=== PATIENT | female | born 1985 | race Caucasian/White ===

== ENCOUNTER 2017-12-04 10:49 | Day surgery (SDC) | payer OTHER ==
[~2017-12-04 10:49] MED LIST: Bupivacaine 0.25%/EPINEPHrine 1:200,000 10 ML SDV INJECT ONE; Lactated Ringers 1,000 ML IV SCH; ceFAZolin 2 GM in Premix Bag 1 BAG IV ONE
--- NOTE | 2017-12-04 11:35 | PCM.PREANE ---
Preanesthetic Assessment - Anesthesia/Transfusion/Family Hx Anesthesia History: Prior Anesthesia Without Reaction Family History of Anesthesia Reaction: No Transfusion History: No Prior Transfusion(s) Intubation History: Unknown - Review of Systems General: No Symptoms Pulmonary: No Symptoms Cardiovascular: No Symptoms Gastrointestinal: No Symptoms Neurological: No Symptoms Other: Reports: None - Physical Assessment Height: 1.75 m Weight: 103.873 kg ASA Class: 2 Mental Status: Alert & Oriented x3 Airway Class: Mallampati = 2 Dentition: Reports: Normal Dentition Thyro-Mental Finger Breadths: 3 Mouth Opening Finger Breadths: 3 ROM/Head Extension: Full Lungs: Clear to Auscultation, Normal Respiratory Effort Cardiovascular: Regular Rate, Regular Rhythm - Allergies Allergies/Adverse Reactions: Allergies Allergy/AdvReac Type Severity Reaction Status Date / Time aluminum hydroxide Allergy Hives Verified 11/29/17 08:46 ciprofloxacin [From Cipro] Allergy Swelling Verified 11/29/17 08:46 ciprofloxacin HCl Allergy Swelling Verified 11/29/17 08:46 [From Cipro] latex Allergy Hives Verified 11/29/17 08:46 - Blood Blood Available: No - Anesthesia Plan Pre-Op Medication Ordered: None - Acknowledgements Anesthesia Type Planned: General Anesthesia Pt an Appropriate Candidate for the Planned Anesthesia: Yes Alternatives and Risks of Anesthesia Discussed w Pt/Guardian: Yes Pt/Guardian Understands and Agrees with Anesthesia Plan: Yes PreAnesthesia Questionnaire HEENT History: Reports: Allergic Rhinitis Cardiovascular History: Reports: Hypertension Respiratory History: Reports: None Gastrointestinal History: Reports: GERD Genitourinary History: Reports: UTI, Recurrent, Other (See Below) (overactive bladder) WARPER FIXER History: Reports: Endometriosis, Musculoskeletal History: Reports: Back Pain, Chronic Other Musculoskeletal History: disc problem, minor pain only since surgery Neurological History: Reports: Migraines, Neuropathy, Peripheral Psychiatric History: Reports: Anxiety, Depression Endocrine/Metabolic History: Reports: Obesity/BMI 30+ Hematologic History: Reports: None Immunologic History: Reports: None Oncologic (Cancer) History: Reports: Malignant Melanoma (on left 5th finger) Dermatologic History: Reports: None - Infectious Disease History Infectious Disease History: Reports: Chicken Pox - Past Surgical History Head Surgeries/Procedures: Reports: None GI Surgical History: Reports: Appendectomy, Cholecystectomy, Colonoscopy, EGD Neurological Surgical History: Reports: Spinal Fusion Other Neurological Surgeries/Procedures: L4-L5 fusion Musculoskeletal Surgical History: Reports: Other (See Below) Other Musculoskeletal Surgeries/Procedures:: L4-L5 fusion, nerve stimulator placement - SUBSTANCE USE Smoking Status *Q: Current Every Day Smoker Tobacco Use Within Last Twelve Months: Cigarettes Second Hand Smoke Exposure: Yes Days Per Week of Alcohol Use: 0 Number of Drinks Per Day: 0 Total Drinks Per Week: 0 Recreational Drug Use History: No - HOME MEDS Home Medications: Home Meds Escitalopram [Lexapro] 20 mg PO DAILY 09/16/14 [History] Ethinyl Estradiol/Etonogestrel [Nuvaring Vaginal Ring] 1 applic VAG ASDIRECTED 09/16/14 [History] Cetirizine [ZyrTEC] 10 mg PO DAILY 01/14/15 [History] Loratadine [Claritin] 10 mg PO DAILY 01/14/15 [History] Montelukast [Singulair] 10 mg PO BEDTIME 01/14/15 [History] Amitriptyline [Elavil] 10 mg PO BEDTIME 11/29/17 [History] Doxycycline [Vibramycin] 1 tab PO BID 11/29/17 [History] Enalapril Maleate 10 mg PO DAILY 11/29/17 [History] Lisinopril 20 mg PO DAILY 11/29/17 [History] Sulfamethoxazole/Trimethoprim [Bactrim Ds Tablet] 2 tab PO BID 11/29/17 [History ] - CURRENT (IN HOUSE) MEDS Current Meds: Current Medications Hydrocodone Bitart/Acetaminophen ([place] 325-5 Mg) 1 tab PO Q4H PRN PRN Reason: Pain Lactated Ringer's (Ringers, Lactated) 1,000 mls @ 125 mls/hr IV ASDIRECTED JOSE Discontinued Medications Bupivacaine HCl/Epinephrine Bitart (Marcaine 0.25%/Epinephrine 1:200,000) 10 ml INJECT ONETIME ONE Stop: 12/04/17 08:01 Cefazolin Sodium/Dextrose 2 gm (/ Premix) 50 mls @ 100 mls/hr IV ONETIME ONE Stop: 12/04/17 08:29
[2017-12-04] MEDS ORDERED: ceFAZolin/Dextrose,Iso-Osmotic 2 GM/50 ML Duplex Bag IV ONE (12:16)
[2017-12-04] MEDS ORDERED: fentaNYL 250 MCG/5 ML SDV ONE (12:20)
[2017-12-04] MEDS ORDERED: Lidocaine 2% 5 ML SDV ONE (12:20)
[2017-12-04] MEDS ORDERED: Midazolam 1 MG/ML 2 ML SDV ONE (12:20)
[2017-12-04] MEDS ORDERED: Propofol 200 MG/20 ML SDV ONE ×2 (12:20→14:44)
[2017-12-04] MEDS ORDERED: Ketorolac 30 MG/ML SDV ONE (12:21)
[2017-12-04] MEDS ORDERED: Ondansetron 4 MG/2 ML SDV ONE (12:21)
[2017-12-04] MEDS ORDERED: Bupivacaine 25%/EPINEPHrine/PF 30 ML ONE (12:46)
[2017-12-04] MEDS ORDERED: Methylene Blue 50 MG/10 ML Ampule ONE (12:54)
[2017-12-04] MEDS ORDERED: fentaNYL 100 MCG/2 ML SDV ONE (13:32)
--- NOTE | 2017-12-04 14:32 | NM ---
EXAMINATION: Left upper extremity lymphoscintigraphy HISTORY: Melanoma COMPARISON: None TECHNIQUE: Chest proximal to the site of previous melanoma within the hand 4 intradermal injections containing 0.5 mCi of filtered sulfur colloid were injected. Subsequent planar imaging obtained of the upper extremity. FINDINGS/IMPRESSION: Approximately 15 minutes post injection activity was noted within the region of the left elbow likely within an epitrochlear lymph node node. Subsequently at 15 to 30 minutes activity is noted within the left axillary region. MTDD
--- NOTE | 2017-12-04 16:40 | PCM.POSTAN ---
POST ANESTHESIA ASSESSMENT - MENTAL STATUS Mental Status: Alert, Oriented Free Text/Narrative:: Pt still sleepy, but sat's 98% on RA - RESPIRATORY Respiratory Status: Respiratory Rate WNL, Airway Patent, O2 Saturation Stable - CARDIOVASCULAR CV Status: Pulse Rate WNL, Blood Pressure Stable - GASTROINTESTINAL GI Status: No Symptoms - PAIN Pain Score: 0 - POST OP HYDRATION Hydration Status: Adequate & Stable
[2017-12-04] MEDS: Acetaminophen/HYDROcodone 325-5 MG Tab PO PRN ×2 (16:57→21:02)
--- NOTE | 2017-12-04 17:15 | PCM.SN ---
- Free Text/Narrative Note: Anesthesia Note: Pt going to stay overnight for pain control. Currently has taken PO [place] and is receiving IV Fentanyl prior to transfer to the floor. VSS.
[2017-12-04] MEDS: fentaNYL 100 MCG/2 ML SDV IVPUSH PRN ×2 (17:19→17:47)
[2017-12-04] MEDS ORDERED: Ondansetron 4 MG Tab.DIS PO PRN (17:21)
--- NOTE | 2017-12-04 17:25 | PCM.OPNOTE ---
- General Post-Op/Procedure Note Date of Surgery/Procedure: 12/04/17 Operative Procedure(s): amputation of left small finger for melanoma with sentinel lymph node biopsy at elbow and axillae, excision of lip lesion/ melanosis. 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
[2017-12-04] MEDS ORDERED: Nicotine 14 MG/24 Hr Patch TRDERM PRN (17:36)
[2017-12-04] MEDS: Morphine 4 MG/ML Syringe IVPUSH PRN ×2 (19:09→21:38)
[2017-12-04] MEDS: Ibuprofen 600 MG Tab PO PRN (19:13)
[2017-12-04] MEDS: Gabapentin 100 MG Cap PO SCH (21:02)
[2017-12-05] MEDS: Acetaminophen/HYDROcodone 325-5 MG Tab PO PRN ×3 (01:51→11:52)
--- NOTE | 2017-12-05 06:00 | PCM48HPAN ---
Post Anesthesia Note - EVALUATION WITHIN 48HRS OF ANESTHETIC Vital Signs in Normal Range: Yes Patient Participated in Evaluation: Yes Respiratory Function Stable: Yes Airway Patent: Yes Cardiovascular Function Stable: Yes Hydration Status Stable: Yes Pain Control Satisfactory: Yes Nausea and Vomiting Control Satisfactory: Yes Mental Status Recovered: Yes Pulse Rate: 64 SaO2: 95 Resp Rate: 14 Blood Pressure: 130/79 - COMMENTS/OBSERVATIONS Free Text/Narrative:: Pt resting, but has had good pain control since about midnight according to the nurse. VSS. No apparent anesthesia complications.
[2017-12-05] MEDS: Gabapentin 100 MG Cap PO SCH (08:03)
[2017-12-05] MEDS: Ibuprofen 600 MG Tab PO PRN (08:04)
--- NOTE | 2017-12-05 13:26 | PCM.PN ---
- General Info Date of Service: 12/05/17 Admission Dx/Problem (Free Text): amputation of left small finger for melanoma and sentinel node biopsies epitrochlear and axillary. Grossly pigmented. Subjective Update: continues to struggle with pain. Discussed changing PO to oxycodone and will try this now. Otherwise no bleeding and overall eating and ambulating. Functional Status: Reports: Tolerating Diet, Ambulating, Urinating. Denies: Pain Controlled - Review of Systems General: Reports: No Symptoms HEENT: Reports: No Symptoms Skin: Reports: Bruising Neurological: Reports: Numbness (small finger and ring finger distribution as expected. Swelling for the ring finger and small finger burning. ) Psychiatric: Reports: Anxiety - Patient Data Vitals - Most Recent: Last Vital Signs Temp 98.2 F 12/05/17 12:00 Pulse 60 12/05/17 12:00 Resp 12 12/05/17 12:00 BP 140/82 12/05/17 12:00 Pulse Ox 94 L 12/05/17 12:00 Weight - Most Recent: 229 lb I&O - Last 24 Hours: Intake & Output 12/04/17 12/05/17 12/05/17 23:59 07:59 15:59 Intake Total 1920 600 920 Output Total 200 Balance 1920 600 720 Med Orders - Current: Current Medications Fentanyl (Sublimaze) 50 mcg IVPUSH Q5M PRN PRN Reason: Pain (severe 7-10) Stop: 12/05/17 14:51 Last Admin: 12/04/17 17:47 Dose: 50 mcg Gabapentin (Neurontin) 100 mg PO BID JOSE Last Admin: 12/05/17 08:03 Dose: 100 mg Ibuprofen (Motrin) 600 mg PO Q6H PRN PRN Reason: Pain Last Admin: 12/05/17 08:04 Dose: 600 mg Morphine Sulfate (Morphine) 2 mg IVPUSH Q2H PRN PRN Reason: Pain Last Admin: 12/04/17 21:38 Dose: 2 mg Nicotine (Habitrol) 14 mg TRDERM ONETIME PRN PRN Reason: Nicotine Withdrawl Last Admin: 12/04/17 18:16 Dose: 14 mg Ondansetron HCl (Zofran Odt) 4 mg PO Q4H PRN PRN Reason: Nausea/Vomiting Oxycodone HCl (Oxycodone) 5 mg PO Q3H PRN PRN Reason: Pain Discontinued Medications Hydrocodone Bitart/Acetaminophen ([place] 325-5 Mg) 1 tab PO Q4H PRN PRN Reason: Pain Last Admin: 12/05/17 01:51 Dose: 2 tab Hydrocodone Bitart/Acetaminophen ([place] 325-5 Mg) 1 - 2 tab PO Q4H PRN PRN Reason: Pain Last Admin: 12/05/17 11:52 Dose: 2 tab Bupivacaine HCl/Epinephrine Bitart (Marcaine 0.25%/Epinephrine 1:200,000) 10 ml INJECT ONETIME ONE Stop: 12/04/17 08:01 Last Admin: 12/04/17 19:21 Dose: Not Given Cefazolin Sodium/Dextrose (Ancef) Confirm Administered Dose 2 gm IV .STK-MED ONE Stop: 12/04/17 12:17 Fentanyl (Sublimaze) Confirm Administered Dose 250 mcg .ROUTE .STK-MED ONE Stop: 12/04/17 12:21 Fentanyl (Sublimaze) Confirm Administered Dose 100 mcg .ROUTE .STK-MED ONE Stop: 12/04/17 13:33 Cefazolin Sodium/Dextrose 2 gm (/ Premix) 50 mls @ 100 mls/hr IV ONETIME ONE Stop: 12/04/17 08:29 Last Admin: 12/04/17 19:22 Dose: Not Given Lactated Ringer's (Ringers, Lactated) 1,000 mls @ 125 mls/hr IV ASDIRECTED [facility] Last Admin: 12/04/17 11:15 Dose: 125 mls/hr Bupivacaine HCl/Epinephrine Bitart (Sensorc Mpf 0.25%-Epi [id number]) Confirm Administered Dose 30 mls @ as directed .ROUTE .STK-MED ONE Stop: 12/04/17 12:47 Ketorolac Tromethamine (Toradol) Confirm Administered Dose 30 mg .ROUTE .STK- MED ONE Stop: 12/04/17 12:22 Lidocaine (Xylocaine-Mpf 2%) Confirm Administered Dose 10 ml .ROUTE .STK-MED ONE Stop: 12/04/17 12:21 Methylene Blue (Provayblue) Confirm Administered Dose 50 mg .ROUTE .STK-MED ONE Stop: 12/04/17 12:55 Midazolam HCl (Versed 1 Mg/Ml) Confirm Administered Dose 2 mg .ROUTE .STK-MED ONE Stop: 12/04/17 12:21 Ondansetron HCl (Zofran) Confirm Administered Dose 4 mg .ROUTE .STK-MED ONE Stop: 12/04/17 12:22 Propofol (Diprivan 20 Ml) Confirm Administered Dose 400 mg .ROUTE .STK-MED ONE Stop: 12/04/17 12:21 Propofol (Diprivan 20 Ml) Confirm Administered Dose 200 mg .ROUTE .STK-MED ONE Stop: 12/04/17 14:45 - Exam General: Alert, Oriented, Cooperative HEENT: Pupils Reactive Lungs: Normal Respiratory Effort Extremities: Normal Capillary Refill Skin: Warm, Dry Wound/Incisions: Healing Well, Dressing Dry and Intact, No Drainage. No: Erythema Psy/Mental Status: Alert, Normal Affect, Normal Mood - Problem List & Annotations (1) Melanoma SNOMED Code(s): 472837062 Code(s): C43.9 - MALIGNANT MELANOMA OF SKIN, UNSPECIFIED Status: Acute Current Visit: Yes Qualifiers: Melanoma location: upper extremity including shoulder Laterality: left Qualified Code(s): C43.62 - Malignant melanoma of left upper limb, including shoulder - Problem List Review Problem List Initiated/Reviewed/Updated: Yes - My Orders Last 24 Hours: My Active Orders 12/04/17 17:11 Admission Status [Patient Status] [ADT] Routine 12/04/17 17:13 Morphine 2 mg IVPUSH Q2H PRN 12/04/17 17:20 Ibuprofen [Motrin] 600 mg PO Q6H PRN 12/04/17 17:21 Ondansetron [Zofran ODT] 4 mg PO Q4H PRN 12/04/17 17:22 Vital Signs [RC] Q4H 12/04/17 17:23 Elevate Extremity [RC] CONTINUOUS 12/04/17 21:00 Gabapentin [Neurontin] 100 mg PO BID 12/04/17 Dinner General [Regular Diet] [DIET] 12/05/17 13:21 oxyCODONE 5 mg PO Q3H PRN - Assessment Assessment:: POD 1 s/p left small finger ray amputation and sentinel node x 2. still with some IV pain medication usage. - Plan Plan:: Continue supportive cares and attempt PO pain control Hopefully home later today if we can improve pain Continue gentle use of the left hand and OK to shower.
[2017-12-05] MEDS: oxyCODONE 5 MG Tab PO PRN ×2 (13:28→16:41)
[2017-12-05 16:48] VITALS: BP 148/82
--- NOTE | 2017-12-05 18:05 | PCM.SN ---
- Free Text/Narrative Note: Doing better with the oxycodone and discussed pain management. OK to discharge later today. Scripts written. Instruction provided especially on careful taking of medication.
--- NOTE | 2017-12-11 00:33 | OR ---
SURGEON: KEON DENNY MD DATE OF PROCEDURE: 12/04/2017 PREOPERATIVE DIAGNOSES: 1. 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 POSTOPERATIVE DIAGNOSES: 1. 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 PROCEDURES PERFORMED: 1. Ray amputation for left small finger melanoma with at least 2 cm margins from the melanoma itself 2. [place] lymph node biopsy x2 at the elbow and axilla. 3. Excision of lip lesion, melanosis, total length of excision is 1 cm with simple closure. ANESTHESIA: Local with general. INDICATIONS: Ms. Paredes is a 32-year-old female seen today in evaluation for melanoma of the left small finger. Unfortunately, it has been there for several years, and the depth is very difficult to tell because it does extend all the way down to the tendon sheath. We discussed risks and benefits of a ray amputation for her. This is what I would recommend given the 2 cm margin would be into the palm and other digits given its location on the proximal phalanx. Risks and benefits of this were discussed thoroughly with her, and she was in agreement. Risks were including but not limited to, bleeding, infection, damage to underlying or overlying structures, possible need for future interventions and possible scarring. All questions answered. We also discussed the prognosis associated with the sentinel lymph node biopsy, and we will proceed with this for her as well. She has no palpable lymphadenopathy. In addition, the patient does have also an area of melanosis of the left lower lip. We discussed that given a diagnosis of melanoma in a very young individual, I would recommend excision of this as it is more focal than the other areas and somewhat darker. It has progressed over the last several weeks. Given this, we discussed removal, and all questions were answered. PROCEDURE IN DETAIL: After informed consent was obtained and placed on the chart, the patient was brought to the operating theater and laid in supine position. After adequate general anesthesia was obtained, the area was prepped and draped, and a time-out was completed to confirm side and site. Attention was first paid to the left lower lip lesion, and 0.25% Marcaine with epinephrine was injected into the area. The lesion was excised in an elliptical fashion and sent with a marking stitch at 12 o'clock to pathology. Once this was sent, the wound was closed using 5-0 chromic stitches in interrupted fashion. She tolerated this well for a total length of 1 cm. Once adequately closed, attention was then paid to the left upper extremity. The area was prepped and draped in a normal fashion, and attention was paid to first the sentinel lymph node biopsies. The nodes were first located, and measurements from both were approximately 10% of the injection site. Given this and the location on the hand, the decision to take both areas as sentinel nodes was made. Attention was first paid to the axillary node, and dissection was carried through the skin and subcutaneous tissues using #15 blade and Bovie electrocautery until dissection through the superficial fascia and location of the axillary lymph node deep in the pocket. The area was spread, and a slightly enlarged axillary lymph node was located and determined to be, using the [place] counter, the sentinel node from this area. Once removed en bloc, the area was meticulously hemostased and irrigated and closed in a layered fashion using 3-0 Stratafix suture for a meticulous closure. The skin was closed with a 4-0 Stratafix running. Once adequately closed, the wound was dressed with a Steri-Strip. Attention was then paid to the left epitrochlear node in the distal upper arm. This was again located at approximately 10% of the original lesion measurements. This was excised and easily found in the subcutaneous plane. It does have a darker pigment to it. The epitrochlear node was labeled as sentinel lymph node #1, and the armpit node was labeled as sentinel lymph node #2 and sent for pathology. Once copiously irrigated and meticulous hemostasis was obtained, again, the skin was closed using a 4-0 subcuticular Monocryl Stratafix. Once these nodes were located and sent for pathology, attention was then paid to ray amputation. The finger was marked appropriately with [address] the way around the mass, and then a pattern was completed to allow meticulous closure without significant tension borrowing tissue from the dorsal aspect of the metacarpophalangeal joint for additional skin. Once adequately marked, 0.25% Marcaine with epinephrine was blocked into the area at the base of the palm in order to allow a field block. Once this was completed, attention was then paid to ray amputation. First, dissection was carried through the skin and subcutaneous tissues, and the neurovascular bundles were located. Once located, traction neurectomies were performed, and the residual ends were attempted to be buried in the residual musculature of the palm. Once this was completed, meticulous hemostasis was obtained, and the metacarpal itself was transected in an oblique fashion at the base leaving the most proximal base intact with a taper ulnarly to prevent prominence here. Once adequately removed en bloc and all of the muscular attachments had been divided using Bovie electrocautery after isolation of the neurovascular bundles, the area was copiously irrigated. The tourniquet was deflated. Meticulous hemostasis was obtained. Appropriate contour was appreciated with significant muscular attachments at the base of the fifth metacarpal allowing coverage of the bony stump here. Once this was completed, the skin was reapproximated after copious irrigation and meticulous hemostasis and closed using a 5-0 Prolene in an interrupted fashion. The melanoma and small finger en bloc were sent for pathological evaluation. The wound was dressed with Xeroform, fluffs, and a Kerlix gauze dressing, and the upper arm incisions were dressed with ABDs and Rehan wraps as well as tape. The lip lesion was dressed with bacitracin. The patient tolerated this well. All counts and needles were correct at the end of the case. FOLLOWUP INSTRUCTIONS: The patient will be maintained in the hospital for pain control postoperatively due to some postoperative nausea and pain issues. She was transferred to PACU in stable condition and will remain in the hospital overnight. LAURA / PRAVEENA /[id number] RONALD
== END 2017-12-05 19:23 | disposition home or self-care (01) ==
LOC: MW.SDS 10:49 → MW.ICU 17:11 → MW.SDS 12-05 19:23
PROVIDERS: ATTEND Plastic Surgery
DX: C43.62 Malignant melanoma of left upper limb, including shoulder (principal); L81.4 Other melanin hyperpigmentation; F32.9 Major depressive disorder, single episode, unspecified; Z88.1 Allergy status to other antibiotic agents; Z91.040 Latex allergy status; Z91.048 Other nonmedicinal substance allergy status; Z79.899 Other long term (current) drug therapy
CPT/HCPCS: 11441; 26910; 38500; 38525; 78195; 81025; 88305; 88307; A9270; A9541; J0690; J1885; J2250; J2270; J2405; J3010; J7120; 01830; J2704

== ENCOUNTER 2020-08-19 08:20 | Inpatient (IN) | payer SELFPAY ==
[2020-08-19] MEDS ORDERED: LORazepam 2 MG/ML SDV IVPUSH ONE (08:58)
[2020-08-19] MEDS ORDERED: Lactated Ringers 1,000 ML IV ONE (08:58)
[2020-08-19] MEDS ORDERED: Aspirin 81 MG Tab.Chew PO ONE (08:58)
--- NOTE | 2020-08-19 09:14 | EDM.PDOC ---
ED HPI GENERAL MEDICAL PROBLEM - General Chief Complaint: General Stated Complaint: SHAKING POSSIBLE HIGH HEART RATE Time Seen by Provider: 08/19/20 08:30 - History of Present Illness INITIAL COMMENTS - FREE TEXT/NARRATIVE: CHIEF COMPLAINT(S): High heart rate HISTORY OF PRESENT ILLNESS: This is a 34-year-old with a past medical history of melanoma who is currently on treatment who comes to the emergency department with a chief complaint of high heart rate. The patient states that for the last 3 days she is experiencing a racing heart rate. She states that it has been constant. She states that she has been experiencing some mild chest pain located on the left side which she describes as sharp rated 4-6 out of 10. She states that there is some mild radiation to her left shoulder. She denies any associated symptoms such as swelling, orthopnea, exertional dyspnea, or exertional chest pain. She states that there are no relieving symptoms. She states that she has had some mild shortness of breath and does have a smoker's cough. She states that she does smoke tobacco. She states that she is also had some nausea and vomiting which was nonbloody and nonbilious that has been going on after her first treatment on August 02, 2019. She denies any melena or hematochezia. She denies any fever, chills, syncope, abdominal pain. She denies any dysuria or hematuria. She denies any prior history of DVT or PE and denies any family history of clotting disorders. She denies any illicit substance use. REVIEW OF SYSTEMS: Constitutional: Denies fever, chills. Eyes: Denies eye pain Ears, Nose, Mouth, & Throat: Denies earache Cardiovascular: Positive for chest pain Respiratory: Positive for shortness of breath Gastrointestinal: Positive for nausea and vomiting. Denies diarrhea, hematochezia, melena, hematemesis, bilious emesis Genitourinary: Denies hematuria dysuria Skin: Positive for rash on face Neurological: Denies blurred vision, numbness, tingling, weakness Psychiatric: Positive for fibromyalgia PAST MEDICAL HISTORY: As per history of present illness and as reviewed below otherwise noncontributory. SURGICAL HISTORY: As per history of present illness and as reviewed below otherwise noncontributory. SOCIAL HISTORY: As per history of present illness and as reviewed below otherwise noncontributory. FAMILY HISTORY: As per history of present illness and as reviewed below otherwise noncontributory. EXAMINATION OF ORGAN SYSTEMS/BODY AREAS: Constitutional: Blood pressure was 140/82, heart rate 140, respiratory rate 39 with an oxygen saturation 9 9% on room air. Temperature is 36.6 orally. General: Anxiously appearing young woman who is in no acute distress Psychiatric: Appears anxious Eyes: No scleral icterus or conjunctival erythema pupils are equal round reactive to light. Extraocular movements intact. ENMT: Moist mucous membranes. No pharyngeal erythema neck is supple no thyromegaly. Cardiovascular: Tachycardic but regular no gallops, murmurs, or rubs. Bilateral upper extremity pulses symmetric and intact. No peripheral edema. No JVD. Respiratory: Lungs clear to auscultation bilaterally. No wheezes, rales, or rhonchi. Patient is tachypneic. Gastrointestinal: Soft, non-tender, non-distended. Normoactive bowel sounds Genitourinary: No suprapubic tenderness Musculoskeletal: Normal range of motion. Skin: There is some mild blotchy, scaly, red rash throughout her face neurological: Alert, GCS 15 MEDICAL DECISION MAKING AND COURSE IN THE ED WITH INTERPRETATION/REVIEW OF DIAGNOSTIC STUDIES: This is a 34-year-old woman in with a past medical history of melanoma and fibromyalgia currently undergoing chemotherapy who comes to the emergency department with tachycardia who is afebrile, normotensive, and tachypneic. I did review the patient's medication list and the patient is on an extensive amount of antidepressants including E citalopram, duloxetine, amitriptyline, Adderall, and naltrexone. This could be a side effect from these medications however given her history of melanoma on chemotherapy PE needs to be rule out. Will obtain an angiogram of the chest to evaluate. Given the patient is afebrile infection is less likely. We will provide the patient with a 500 cc bolus as her #1 diagnosis at this time is pulmonary embolus. Given the chemotherapy will obtain lab analysis including CBC with differential, CMP. This could also be due to hyperthyroidism. Will obtain a TSH and T4. RN had difficulty obtaining access to reports therefore IV access was placed. It is thought that the port may be misplaced therefore we will obtain a chest x-ray to evaluate. For the tachycardia we will also provide the patient with 1 mg of IV Ativan. Given the chest pain will obtain a 324 mg aspirin. EKG was obtained which did not reveal any acute signs of ischemia. Twelve-lead EKG interpreted by myself. Sinus tachycardia at a rate of 133 beats per minute. The axis. NC interval is 127 ms. QRS duration is [address] segments are normal without elevations or depressions. No Q waves present. Hypertrophy not noted. No prior EKGs in the system. Interpretation: Sinus tachycardia Laboratory: CBC is unremarkable. Coags are within normal limits. Lactic acid is 3.2. CMP reveals mild elevation in BUN at 21, hyperglycemia at 113 and mild elevation in ALT at 69. TSH is severely low at 0.01 and free T4 and free T3 are elevated at 4.09 and 5.92. hCG is negative. Covid and influenza and RSV are negative. The radiological images were viewed by myself along with reading the report from the radiologist. Chest x-ray does not reveal any acute cardiopulmonary process. Port catheter is in satisfactory position. CT angiogram of the chest does not reveal any acute pulmonary embolism or other acute abnormality. There is a stable 4 mm right lower lobe nodule of doubtful significance. Lungs are clear otherwise. After TSH had returned I do believe this is secondary to hyperthyroidism. The patient's heart rate had improved to 110. We do not have the ability to provide the patient with propranolol IV therefore I ordered the patient atenolol 25 mg p.o. We discussed with her at this time that given the tachycardia and degree of hyperthyroidism would like to admit her the hospital. She was amenable to this plan. I do not believe this is thyroid storm therefore I will not provide her with any other medication. I contacted Dr. Houser and they accepted the patient for admission. At the time of admission the patient's heart rate improved. Repeat lactic acid was pending at the patient was still receiving IV bolus. DISPOSITION: The patient admitted to telemetry in stable condition CONDITION: Fair PROCEDURES: None FINAL IMPRESSION(S)/DIAGNOSES: 1. Acute tachycardia likely secondary to hyperthyroidism 2. Acute lactic acidosis Rafiq Spencer M.D. Left Chest Pain Score (Numeric/FACES): 4 - Related Data Allergies Allergy/AdvReac Type Severity Reaction Status Date / Time aluminum hydroxide Allergy Hives Verified 08/19/20 14:39 ciprofloxacin [From Cipro] Allergy Swelling Verified 08/19/20 14:39 ciprofloxacin HCl Allergy Swelling Verified 08/19/20 14:39 [From Cipro] latex Allergy Hives Verified 08/19/20 14:40 sulfamethoxazole Allergy Hives Verified 08/19/20 14:41 [From Bactrim] trimethoprim [From Bactrim] Allergy Hives Verified 08/19/20 14:41 Home Meds: Home Meds Amitriptyline [Elavil] 50 mg PO DAILY 08/19/20 [History] Amphetamine/Dextroamphetamine [Adderall] 20 mg PO TID 08/19/20 [History] DULoxetine HCl [Duloxetine HCl] 60 mg PO DAILY 08/19/20 [History] Diclofenac Sodium [Voltaren] 75 mg PO BID 08/19/20 [History] Escitalopram [Lexapro] 20 mg PO DAILY 08/19/20 [History] Naltrexone 4.5 mg PO DAILY 08/19/20 [History] Ondansetron [Zofran] 4 mg PO ASDIRECTED PRN 08/19/20 [History] lisinopriL [Lisinopril] 20 mg PO DAILY 08/19/20 [History] Past Medical History HEENT History: Reports: None Other HEENT History: wears eyeglasses Cardiovascular History: Reports: None Respiratory History: Reports: None Other Respiratory History: seasonal allergy asthma Gastrointestinal History: Reports: None Other Gastrointestinal History: gluten allergy Genitourinary History: Reports: UTI, Recurrent, Other (See Below) PUBLIC HEALTH DENTIST History: Reports: Musculoskeletal History: Reports: None Other Musculoskeletal History: disc problem, minor pain only since surgery Neurological History: Reports: Migraines Psychiatric History: Reports: None, Depression Endocrine/Metabolic History: Reports: Obesity/BMI 30+ Hematologic History: Reports: None Immunologic History: Reports: None Oncologic (Cancer) History: Reports: None Dermatologic History: Reports: None - Infectious Disease History Infectious Disease History: Reports: Chicken Pox - Past Surgical History GI Surgical History: Reports: Appendectomy, Cholecystectomy Other Musculoskeletal Surgeries/Procedures:: L4-L5 fusion Social & Family History - Family History Cardiac: Reports: None Respiratory: Reports: None GI: Reports: None Endocrine/Metabolic: Reports: None Hematologic: Reports: None Immunologic: Reports: None Dermatologic: Reports: None - Caffeine Use Caffeine Use: Reports: Soda ED ROS GENERAL - Review of Systems Review Of Systems: See Below ED EXAM, GENERAL - Physical Exam Exam: See Below Course - Vital Signs Last Recorded V/S: Last Vital Signs Temp 36.5 C 08/19/20 14:10 Pulse 88 08/19/20 18:17 Resp 16 08/19/20 14:10 BP 116/53 L 08/19/20 18:17 Pulse Ox 97 08/19/20 14:10 - Orders/Labs/Meds Orders: Active Orders 24 hr Category Date Time Status Nicotine [Habitrol] Med 08/19/20 11:30 Active 21 mg TRDERM DAILY Medication Orders Amitriptyline HCl (Elavil) 50 mg PO DAILY [facility] Atenolol (Tenormin) 25 mg PO DAILY [facility] Escitalopram Oxalate (Lexapro) 20 mg PO DAILY [facility] Hydrocortisone Sodium Succinate (Solu-Cortef) 100 mg IV Q8H [facility] Last Admin: 08/19/20 16:07 Dose: 100 mg Documented by: BEBA Lactated Ringer's (Ringers, Lactated) 1,000 mls @ 125 mls/hr IV ASDIRECTED [facility] Last Admin: 08/19/20 16:08 Dose: 125 mls/hr Documented by: BEBA Lisinopril (Prinivil) 20 mg PO DAILY [facility] Lorazepam (Ativan) 1 mg IVPUSH Q4H PRN PRN Reason: Anxiety Nicotine (Habitrol) 21 mg TRDERM DAILY [facility] Last Admin: 08/19/20 11:22 Dose: 21 mg Documented by: JACQUIE Non-Formulary Medication (Fluoxetine Hcl [Fluoxetine Hcl]) 60 mg PO DAILY [facility] Non-Formulary Medication (Naltrexone) 4.5 mg PO DAILY [facility] Labs: Laboratory Tests 08/19/20 08/19/20 08/19/20 Range/Units 08:45 08:45 08:45 WBC 4.89 (4.0-11.0) K/uL RBC 4.04 L (4.30-5.90) M/uL Hgb 12.2 (12.0-16.0) g/dL Hct 36.4 (36.0-46.0) % MCV 90.1 (80.0-98.0) fL MCH 30.2 (27.0-32.0) pg MCHC 33.5 (31.0-37.0) g/dL RDW Std Deviation 38.5 (28.0-62.0) fl RDW Coeff of Smiley 12 (11.0-15.0) % Plt Count 302 (150-400) K/uL MPV 10.00 (7.40-12.00) fL Neut % (Auto) 40.3 L (48.0-80.0) % Lymph % (Auto) 42.3 H (16.0-40.0) % [place] % (Auto) 17.4 H (0.0-15.0) % Eos % (Auto) 0.0 (0.0-7.0) % Baso % (Auto) 0.0 (0.0-1.5) % Neut # (Auto) 2.0 (1.4-5.7) K/uL Lymph # (Auto) 2.1 (0.6-2.4) K/uL [place] # (Auto) 0.9 H (0.0-0.8) K/uL Eos # (Auto) 0.0 (0.0-0.7) K/uL Baso # (Auto) 0.0 (0.0-0.1) K/uL Nucleated RBC % 0.0 /100WBC Nucleated RBCs # 0 K/uL INR 0.98 Lactate 3.2 H* (0.20-2.00) mmol/L Sodium (136-145) mmol/L Potassium (3.5-5.1) mmol/L Chloride (98-107) mmol/L Carbon Dioxide (21.0-32.0) mmol/L BUN (7.0-18.0) mg/dL Creatinine (0.6-1.0) mg/dL Est Cr Clr Drug Dosing mL/min Estimated GFR (MDRD) ml/min Glucose (74-106) mg/dL Calcium (8.5-10.1) mg/dL Magnesium (1.8-2.4) mg/dL Total Bilirubin (0.2-1.0) mg/dL AST (15-37) IU/L ALT (14-63) IU/L Alkaline Phosphatase (46-116) U/L Troponin I (0.000-0.056) ng/mL Total Protein (6.4-8.2) g/dL Albumin (3.4-5.0) g/dL Globulin (2.6-4.0) g/dL Albumin/Globulin Ratio (0.9-1.6) Free T4 (0.76-1.46) ng/dL Free T3 (2.18-3.98) pg/mL TSH 3rd Generation (0.36-3.74) uIU/mL HCG, Qual (NEG) Influenza Type A RNA (NEGATIVE) RSV RNA (INAAT) (NEGATIVE) Influenza Type B RNA (NEGATIVE) SARS-CoV-2 RNA (SIENA) (NEGATIVE) Blood Type Antibody Screen 08/19/20 08/19/20 08/19/20 Range/Units 08:45 08:45 08:45 WBC (4.0-11.0) K/uL RBC (4.30-5.90) M/uL Hgb (12.0-16.0) g/dL Hct (36.0-46.0) % MCV (80.0-98.0) fL MCH (27.0-32.0) pg MCHC (31.0-37.0) g/dL RDW Std Deviation (28.0-62.0) fl RDW Coeff of Smiley (11.0-15.0) % Plt Count (150-400) K/uL MPV (7.40-12.00) fL Neut % (Auto) (48.0-80.0) % Lymph % (Auto) (16.0-40.0) % [place] % (Auto) (0.0-15.0) % Eos % (Auto) (0.0-7.0) % Baso % (Auto) (0.0-1.5) % Neut # (Auto) (1.4-5.7) K/uL Lymph # (Auto) (0.6-2.4) K/uL [place] # (Auto) (0.0-0.8) K/uL Eos # (Auto) (0.0-0.7) K/uL Baso # (Auto) (0.0-0.1) K/uL Nucleated RBC % /100WBC Nucleated RBCs # K/uL INR Lactate (0.20-2.00) mmol/L Sodium 138 (136-145) mmol/L Potassium 4.7 (3.5-5.1) mmol/L Chloride 102 (98-107) mmol/L Carbon Dioxide 25.0 (21.0-32.0) mmol/L BUN 21 H (7.0-18.0) mg/dL Creatinine 0.9 (0.6-1.0) mg/dL Est Cr Clr Drug Dosing 93.78 mL/min Estimated GFR (MDRD) > 60.0 ml/min Glucose 113 H (74-106) mg/dL Calcium 9.4 (8.5-10.1) mg/dL Magnesium 2.0 (1.8-2.4) mg/dL Total Bilirubin 0.3 (0.2-1.0) mg/dL AST 21 (15-37) IU/L ALT 69 H (14-63) IU/L Alkaline Phosphatase 104 (46-116) U/L Troponin I < 0.050 (0.000-0.056) ng/mL Total Protein 7.2 (6.4-8.2) g/dL Albumin 3.4 (3.4-5.0) g/dL Globulin 3.8 (2.6-4.0) g/dL Albumin/Globulin Ratio 0.9 (0.9-1.6) Free T4 4.09 H (0.76-1.46) ng/dL Free T3 5.92 H (2.18-3.98) pg/mL TSH 3rd Generation 0.01 L (0.36-3.74) uIU/mL HCG, Qual NEGATIVE (NEG) Influenza Type A RNA (NEGATIVE) RSV RNA (INAAT) (NEGATIVE) Influenza Type B RNA (NEGATIVE) SARS-CoV-2 RNA (SIENA) (NEGATIVE) Blood Type Antibody Screen 08/19/20 08/19/20 Range/Units 09:15 09:33 WBC (4.0-11.0) K/uL RBC (4.30-5.90) M/uL Hgb (12.0-16.0) g/dL Hct (36.0-46.0) % MCV (80.0-98.0) fL MCH (27.0-32.0) pg MCHC (31.0-37.0) g/dL RDW Std Deviation (28.0-62.0) fl RDW Coeff of Smiley (11.0-15.0) % Plt Count (150-400) K/uL MPV (7.40-12.00) fL Neut % (Auto) (48.0-80.0) % Lymph % (Auto) (16.0-40.0) % [place] % (Auto) (0.0-15.0) % Eos % (Auto) (0.0-7.0) % Baso % (Auto) (0.0-1.5) % Neut # (Auto) (1.4-5.7) K/uL Lymph # (Auto) (0.6-2.4) K/uL [place] # (Auto) (0.0-0.8) K/uL Eos # (Auto) (0.0-0.7) K/uL Baso # (Auto) (0.0-0.1) K/uL Nucleated RBC % /100WBC Nucleated RBCs # K/uL INR Lactate (0.20-2.00) mmol/L Sodium (136-145) mmol/L Potassium (3.5-5.1) mmol/L Chloride (98-107) mmol/L Carbon Dioxide (21.0-32.0) mmol/L BUN (7.0-18.0) mg/dL Creatinine (0.6-1.0) mg/dL Est Cr Clr Drug Dosing mL/min Estimated GFR (MDRD) ml/min Glucose (74-106) mg/dL Calcium (8.5-10.1) mg/dL Magnesium (1.8-2.4) mg/dL Total Bilirubin (0.2-1.0) mg/dL AST (15-37) IU/L ALT (14-63) IU/L Alkaline Phosphatase (46-116) U/L Troponin I (0.000-0.056) ng/mL Total Protein (6.4-8.2) g/dL Albumin (3.4-5.0) g/dL Globulin (2.6-4.0) g/dL Albumin/Globulin Ratio (0.9-1.6) Free T4 (0.76-1.46) ng/dL Free T3 (2.18-3.98) pg/mL TSH 3rd Generation (0.36-3.74) uIU/mL HCG, Qual (NEG) Influenza Type A RNA NEGATIVE (NEGATIVE) RSV RNA (INAAT) NEGATIVE (NEGATIVE) Influenza Type B RNA NEGATIVE (NEGATIVE) SARS-CoV-2 RNA ([place]) NEGATIVE (NEGATIVE) Blood Type A POSITIVE Antibody Screen NEGATIVE Meds: Medications Generic Name Dose Route Start Last Admin Trade Name Tahmina PRN Reason Stop Dose Admin Amitriptyline HCl 50 mg 08/20/20 09:00 Elavil PO DAILY JO[facility] Atenolol 25 mg 08/20/20 09:00 Tenormin PO DAILY JOSE Escitalopram Oxalate 20 mg 08/20/20 09:00 Lexapro PO DAILY [facility] Hydrocortisone Sodium Succinate 100 mg 08/19/20 15:15 08/19/20 16:07 Solu-Cortef IV 100 mg Q8H JOSE Administration Lactated Ringer's 1,000 mls @ 125 mls/hr 08/19/20 15:00 08/19/20 16:08 Ringers, Lactated IV 125 mls/hr ASDIRECTED JOSE Administration Lisinopril 20 mg 08/20/20 09:00 Prinivil PO DAILY [facility] Lorazepam 1 mg 08/19/20 12:06 Ativan IVPUSH Q4H PRN Anxiety Nicotine 21 mg 08/19/20 11:30 08/19/20 11:22 Habitrol TRDERM 21 mg DAILY JOSE Administration Non-Formulary Medication 60 mg 08/20/20 09:00 Fluoxetine Hcl [Fluoxetine Hcl] PO DAILY JOSE Non-Formulary Medication 4.5 mg 08/20/20 09:00 Naltrexone PO DAILY JOSE Discontinued Medications Generic Name Dose Route Start Last Admin Trade Name Tahmina PRN Reason Stop Dose Admin Aspirin 324 mg 08/19/20 08:58 08/19/20 09:20 Aspirin PO 08/19/20 08:59 324 mg ONETIME ONE Administration Atenolol 25 mg 08/19/20 10:00 08/19/20 10:24 Tenormin PO 08/19/20 10:01 25 mg ONETIME ONE Administration Atenolol 25 mg 08/19/20 18:00 08/19/20 18:17 Tenormin PO 08/19/20 18:01 25 mg ONETIME ONE Administration Lactated Ringer's 1,000 mls @ 500 mls/hr 08/19/20 08:58 08/19/20 09:19 Ringers, Lactated IV 08/19/20 10:57 500 mls/hr .BOLUS ONE Administration Iopamidol 70 ml 08/19/20 10:24 08/19/20 10:25 Isovue Multipack-370 (76%) IVPUSH 08/19/20 10:25 70 ml ONETIME ONE Administration Lorazepam 1 mg 08/19/20 08:58 08/19/20 09:20 Ativan IVPUSH 08/19/20 08:59 1 mg ONETIME ONE Administration Methimazole 10 mg 08/19/20 13:59 08/19/20 16:06 Methimazole PO 08/19/20 14:00 10 mg DAILY ONE Administration Nicotine Confirm 08/19/20 11:18 08/19/20 11:25 Habitrol Administered 08/19/20 11:19 Not Given Dose 21 mg .ROUTE .STK-MED ONE Departure - Departure Time of Disposition: 11:46 Disposition: Admitted As Inpatient 68 Clinical Impression: Hyperthyroidism - Discharge Information Sepsis Event Note (ED) - Evaluation Sepsis Screening Result: No Definite Risk - Focused Exam Vital Signs: Vital Signs Temp Pulse Pulse Resp BP BP Pulse Ox 08/19/20 11:30 90 18 113/72 97 08/19/20 10:30 97 20 114/72 97 08/19/20 10:24 107 H 126/82 08/19/20 09:30 114 H 20 121/83 99 08/19/20 09:01 35.9 C L 140 H 39 H 140/82 99 08/19/20 09:00 129 H 22 H 126/82 - My Orders Last 24 Hours: My Active Orders 08/19/20 11:30 Nicotine [Habitrol] 21 mg TRDERM DAILY - Assessment/Plan Last 24 Hours: My Active Orders 08/19/20 11:30 Nicotine [Habitrol] 21 mg TRDERM DAILY
--- NOTE | 2020-08-19 09:20 | CR ---
INDICATION: Port placement TECHNIQUE: Chest 1 view COMPARISON: November 12, 2017 FINDINGS: Cardiovascular and mediastinum: Heart size and vasculature are normal in caliber and appearance. Right-sided port catheter is in satisfactory position. Lungs and pleural spaces: Lungs are clear. No sign of infiltrate or mass. No sign of pleural effusion. No pneumothorax. Bones and soft tissues: No significant findings. IMPRESSION: Port catheter is in satisfactory position and there are no acute abnormalities. Dictated by Chaparro Santos MD @ Aug 19 2020 9:18AM Signed by Dr. Chaparro Santos @ Aug 19 2020 9:19AM
[2020-08-19 09:26] LABS: BLOOD UREA NITROGEN,BUN 21 mg/dL (7.0-18.0); CHLORIDE,CL 102 mmol/L (98-107); GLUCOSE RANDOM 113 mg/dL (74-106); POTASSIUM,K 4.7 mmol/L (3.5-5.1); SODIUM,NA 138 mmol/L (136-145)
[2020-08-19] MEDS ORDERED: Atenolol 25 MG Tab PO ONE ×2 (10:00→18:00)
[2020-08-19 10:18] LABS: CORONAVIRUS COVID-19 NAA NEGATIVE (NEGATIVE); INFLUENZA A NAA NEGATIVE (NEGATIVE); INFLUENZA B NAA NEGATIVE (NEGATIVE); RESPIRATORY SYNCYTIAL VIR NAA NEGATIVE (NEGATIVE)
[2020-08-19] MEDS ORDERED: Iopamidol 755 MG/ML 500 ML Multipack Bottle IVPUSH ONE (10:24)
--- NOTE | 2020-08-19 11:00 | CT ---
INDICATION: Elevated heart rate and dyspnea. History of melanoma. TECHNIQUE: CT chest PE was acquired with 70 cc Isovue 370 IV contrast. COMPARISON: PET scan March 17, 2020. FINDINGS: Heart and vasculature: Contrast opacification of the pulmonary arterial tree is adequate. No sign of pulmonary embolism. Heart size is normal. Thoracic aorta and pulmonary artery are normal in caliber. Lungs and pleural: No suspicious nodules or infiltrates. Stable 4 mm perifissural nodule in the right lower lobe on series 603, image 53. no pleural effusions, pleural thickening, or pneumothorax. Lymph nodes/mediastinum: No mediastinal, hilar, or axillary adenopathy. Thyroid gland is normal. Chest wall: No masses. Upper abdomen: Spleen is enlarged measuring 15 cm in length. No other significant finding. Bones: Unremarkable for age. IMPRESSION: 1. No pulmonary embolism or other acute abnormality. 2. Stable 4 mm right lower lobe pulmonary nodule of doubtful significance. Lungs are otherwise clear. 3. Nonspecific splenomegaly. Please note that all CT scans at this facility use dose modulation, iterative reconstruction, and/or weight-based dosing when appropriate to reduce radiation dose to as low as reasonably achievable. Dictated by Chaparro Snatos MD @ Aug 19 2020 10:48AM Signed by Dr. Chaparro Santos @ Aug 19 2020 10:59AM
[2020-08-19] MEDS ORDERED: Nicotine 21 MG/24 Hr Patch ONE (11:18)
[2020-08-19] MEDS: Nicotine 21 MG/24 Hr Patch TRDERM SCH (11:22)
[2020-08-19] MEDS ORDERED: LORazepam 2 MG/ML SDV IVPUSH PRN (12:06)
--- NOTE | 2020-08-19 12:06 | PCM.HP.2 ---
<Kamala Shields - Last Filed: 08/19/20 14:53> H&P History of Present Illness - General Date of Service: 08/19/20 Admit Problem/Dx: Admission Diagnosis/Problem Admission Diagnosis/Problem Hyperthyroidism Source of Information: Patient - History of Present Illness Initial Comments - Free Text/Narative: Patient is a 34-year-old female with a significant past medical history of me lanoma currently receiving chemotherapy presenting to the ED with a chief complaint of elevated heart rate. Patient endorsed to ER physician 3 days of racing heart sensation which has been constant. Also endorsed mild chest pain rated at 4 out of 10. Patient otherwise denies any shortness of breath, exertional dyspnea orthopnea and or swelling. Endorses nausea with nonbloody/nonbilious vomiting since receiving her chemotherapy on August 02, 2019. ED course: Patient in the ED was found to be tachycardic with elevated T3-T4 and low TSH. Given 25 mg of atenolol. Elevated lactate provided 1 L IV fluids. Which had resolved on repeat. Angiogram ordered secondary to tachycardia with concerns for PE: Negative for pulmonary emboli. Bedside:Endorses feeling jittery w. racing heart but is not in any acute pain. Denies use of illicit drugs or OTC supplements. Mentions Dr Mosquera of [facility] [place], [place] had mentioned her chemotherapy regimen may alter her thyroid levels. Otherwise pt is in no acute distress. Left Chest Pain Score (Numeric/FACES): 4 - Related Data Allergies/Adverse Reactions: Allergies Allergy/AdvReac Type Severity Reaction Status Date / Time aluminum hydroxide Allergy Hives Verified 08/19/20 14:39 ciprofloxacin [From Cipro] Allergy Swelling Verified 08/19/20 14:39 ciprofloxacin HCl Allergy Swelling Verified 08/19/20 14:39 [From Cipro] latex Allergy Hives Verified 08/19/20 14:40 sulfamethoxazole Allergy Hives Verified 08/19/20 14:41 [From Bactrim] trimethoprim [From Bactrim] Allergy Hives Verified 08/19/20 14:41 Home Medications: Home Meds Amitriptyline [Elavil] 50 mg PO DAILY 08/19/20 [History] Amphetamine/Dextroamphetamine [Adderall] 20 mg PO TID 08/19/20 [History] DULoxetine HCl [Duloxetine HCl] 60 mg PO BEDTIME 08/19/20 [History] Escitalopram [Lexapro] 20 mg PO DAILY 08/19/20 [History] Naltrexone 4.5 mg PO BEDTIME 08/19/20 [History] Ondansetron [Zofran] 4 mg PO ASDIRECTED PRN 08/19/20 [History] lisinopriL [Lisinopril] 20 mg PO DAILY 08/19/20 [History] Methimazole [Tapazole] 10 mg PO DAILY 5 Days #5 tablet 08/20/20 [Rx] atenoloL [Tenormin] 25 mg PO DAILY 10 Days #10 tablet 08/20/20 [Rx] predniSONE [Prednisone] 40 mg PO DAILY 7 Days #14 tablet 08/20/20 [Rx] Past Medical History HEENT History: Reports: None Other HEENT History: wears eyeglasses Cardiovascular History: Reports: None Respiratory History: Reports: None Other Respiratory History: seasonal allergy asthma Gastrointestinal History: Reports: None Other Gastrointestinal History: gluten allergy Genitourinary History: Reports: UTI, Recurrent, Other (See Below) [employer] History: Reports: Musculoskeletal History: Reports: None Other Musculoskeletal History: disc problem, minor pain only since surgery Neurological History: Reports: Migraines Psychiatric History: Reports: None, Depression Endocrine/Metabolic History: Reports: Obesity/BMI 30+ Hematologic History: Reports: None Immunologic History: Reports: None Oncologic (Cancer) History: Reports: None Dermatologic History: Reports: None - Infectious Disease History Infectious Disease History: Reports: Chicken Pox - Past Surgical History Head Surgeries/Procedures: Reports: None GI Surgical History: Reports: Appendectomy, Cholecystectomy Neurological Surgical History: Reports: Spinal Fusion Other Neurological Surgeries/Procedures: L4-L5 fusion Musculoskeletal Surgical History: Reports: Other (See Below) Other Musculoskeletal Surgeries/Procedures:: L4-L5 fusion Social & Family History - Family History Cardiac: Reports: None Respiratory: Reports: None GI: Reports: None Endocrine/Metabolic: Reports: None Hematologic: Reports: None Immunologic: Reports: None Dermatologic: Reports: None - Tobacco Use Tobacco Use Status *Q: Current Every Day Tobacco User Years of Tobacco use: 15 Packs/Tins Daily: 1 - Caffeine Use Caffeine Use: Reports: Soda - Recreational Drug Use Recreational Drug Use: No H&P Review of Systems - Review of Systems: Review Of Systems: See Below General: Reports: No Symptoms HEENT: Reports: No Symptoms Pulmonary: Reports: No Symptoms Cardiovascular: Reports: No Symptoms Gastrointestinal: Reports: No Symptoms, Nausea. Denies: Decreased Appetite Genitourinary: Reports: No Symptoms Musculoskeletal: Reports: No Symptoms, Neck Pain (posterior neck pain ) Skin: Reports: No Symptoms Psychiatric: Reports: No Symptoms Neurological: Reports: Dizziness, Headache Hematologic/Lymphatic: Reports: No Symptoms Exam - Exam Exam: See Below - Vital Signs Vital Signs: Last Vital Signs Temp 96.6 F L 08/19/20 09:01 Pulse 107 H 08/19/20 10:24 Resp 39 H 08/19/20 09:01 BP 126/82 08/19/20 10:24 Pulse Ox 99 08/19/20 09:01 Weight: 106.594 kg - Exam Quality Assessment: No: Supplemental Oxygen General: Alert, Oriented HEENT: EOMI Neck: Supple, Trachea Midline, Other (no thyroid masses and or tenderness to palpation noted ). No: Thyromegaly Lungs: Clear to Auscultation, Normal Respiratory Effort Cardiovascular: Regular Rhythm, Tachycardia GI/Abdominal Exam: Soft, Non-Tender Extremities: Normal Inspection Neurological: Cranial Nerves Intact, Normal Speech Neuro Extensive - Mental Status: Alert, Oriented x3, Normal Cognition Psychiatric: Alert, Anxious - Patient Data Lab Results Last 24 hrs: Laboratory Results - last 24 hr 08/19/20 08/19/20 08/19/20 Range/Units 08:45 08:45 08:45 WBC 4.89 (4.0-11.0) K/uL RBC 4.04 L (4.30-5.90) M/uL Hgb 12.2 (12.0-16.0) g/dL Hct 36.4 (36.0-46.0) % MCV 90.1 (80.0-98.0) fL MCH 30.2 (27.0-32.0) pg MCHC 33.5 (31.0-37.0) g/dL RDW Std Deviation 38.5 (28.0-62.0) fl RDW Coeff of Smiley 12 (11.0-15.0) % Plt Count 302 (150-400) K/uL MPV 10.00 (7.40-12.00) fL Neut % (Auto) 40.3 L (48.0-80.0) % Lymph % (Auto) 42.3 H (16.0-40.0) % [place] % (Auto) 17.4 H (0.0-15.0) % Eos % (Auto) 0.0 (0.0-7.0) % Baso % (Auto) 0.0 (0.0-1.5) % Neut # (Auto) 2.0 (1.4-5.7) K/uL Lymph # (Auto) 2.1 (0.6-2.4) K/uL [place] # (Auto) 0.9 H (0.0-0.8) K/uL Eos # (Auto) 0.0 (0.0-0.7) K/uL Baso # (Auto) 0.0 (0.0-0.1) K/uL Nucleated RBC % 0.0 /100WBC Nucleated RBCs # 0 K/uL INR 0.98 Lactate 3.2 H* (0.20-2.00) mmol/L Sodium (136-145) mmol/L Potassium (3.5-5.1) mmol/L Chloride (98-107) mmol/L Carbon Dioxide (21.0-32.0) mmol/L BUN (7.0-18.0) mg/dL Creatinine (0.6-1.0) mg/dL Est Cr Clr Drug Dosing mL/min Estimated GFR (MDRD) ml/min Glucose (74-106) mg/dL Calcium (8.5-10.1) mg/dL Magnesium (1.8-2.4) mg/dL Total Bilirubin (0.2-1.0) mg/dL AST (15-37) IU/L ALT (14-63) IU/L Alkaline Phosphatase (46-116) U/L Troponin I (0.000-0.056) ng/mL Total Protein (6.4-8.2) g/dL Albumin (3.4-5.0) g/dL Globulin (2.6-4.0) g/dL Albumin/Globulin Ratio (0.9-1.6) Free T4 (0.76-1.46) ng/dL Free T3 (2.18-3.98) pg/mL TSH 3rd Generation (0.36-3.74) uIU/mL HCG, Qual (NEG) Influenza Type A RNA (NEGATIVE) RSV RNA (INAAT) (NEGATIVE) Influenza Type B RNA (NEGATIVE) SARS-CoV-2 RNA (SIENA) (NEGATIVE) Blood Type Antibody Screen 08/19/20 08/19/20 08/19/20 Range/Units 08:45 08:45 08:45 WBC (4.0-11.0) K/uL RBC (4.30-5.90) M/uL Hgb (12.0-16.0) g/dL Hct (36.0-46.0) % MCV (80.0-98.0) fL MCH (27.0-32.0) pg MCHC (31.0-37.0) g/dL RDW Std Deviation (28.0-62.0) fl RDW Coeff of Smiley (11.0-15.0) % Plt Count (150-400) K/uL MPV (7.40-12.00) fL Neut % (Auto) (48.0-80.0) % Lymph % (Auto) (16.0-40.0) % [place] % (Auto) (0.0-15.0) % Eos % (Auto) (0.0-7.0) % Baso % (Auto) (0.0-1.5) % Neut # (Auto) (1.4-5.7) K/uL Lymph # (Auto) (0.6-2.4) K/uL [place] # (Auto) (0.0-0.8) K/uL Eos # (Auto) (0.0-0.7) K/uL Baso # (Auto) (0.0-0.1) K/uL Nucleated RBC % /100WBC Nucleated RBCs # K/uL INR Lactate (0.20-2.00) mmol/L Sodium 138 (136-145) mmol/L Potassium 4.7 (3.5-5.1) mmol/L Chloride 102 (98-107) mmol/L Carbon Dioxide 25.0 (21.0-32.0) mmol/L BUN 21 H (7.0-18.0) mg/dL Creatinine 0.9 (0.6-1.0) mg/dL Est Cr Clr Drug Dosing 93.78 mL/min Estimated GFR (MDRD) > 60.0 ml/min Glucose 113 H (74-106) mg/dL Calcium 9.4 (8.5-10.1) mg/dL Magnesium 2.0 (1.8-2.4) mg/dL Total Bilirubin 0.3 (0.2-1.0) mg/dL AST 21 (15-37) IU/L ALT 69 H (14-63) IU/L Alkaline Phosphatase 104 (46-116) U/L Troponin I < 0.050 (0.000-0.056) ng/mL Total Protein 7.2 (6.4-8.2) g/dL Albumin 3.4 (3.4-5.0) g/dL Globulin 3.8 (2.6-4.0) g/dL Albumin/Globulin Ratio 0.9 (0.9-1.6) Free T4 4.09 H (0.76-1.46) ng/dL Free T3 5.92 H (2.18-3.98) pg/mL TSH 3rd Generation 0.01 L (0.36-3.74) uIU/mL HCG, Qual NEGATIVE (NEG) Influenza Type A RNA (NEGATIVE) RSV RNA (INAAT) (NEGATIVE) Influenza Type B RNA (NEGATIVE) SARS-CoV-2 RNA (SIENA) (NEGATIVE) Blood Type Antibody Screen 08/19/20 08/19/20 Range/Units 09:15 09:33 WBC (4.0-11.0) K/uL RBC (4.30-5.90) M/uL Hgb (12.0-16.0) g/dL Hct (36.0-46.0) % MCV (80.0-98.0) fL MCH (27.0-32.0) pg MCHC (31.0-37.0) g/dL RDW Std Deviation (28.0-62.0) fl RDW Coeff of Smiley (11.0-15.0) % Plt Count (150-400) K/uL MPV (7.40-12.00) fL Neut % (Auto) (48.0-80.0) % Lymph % (Auto) (16.0-40.0) % [place] % (Auto) (0.0-15.0) % Eos % (Auto) (0.0-7.0) % Baso % (Auto) (0.0-1.5) % Neut # (Auto) (1.4-5.7) K/uL Lymph # (Auto) (0.6-2.4) K/uL [place] # (Auto) (0.0-0.8) K/uL Eos # (Auto) (0.0-0.7) K/uL Baso # (Auto) (0.0-0.1) K/uL Nucleated RBC % /100WBC Nucleated RBCs # K/uL INR Lactate (0.20-2.00) mmol/L Sodium (136-145) mmol/L Potassium (3.5-5.1) mmol/L Chloride (98-107) mmol/L Carbon Dioxide (21.0-32.0) mmol/L BUN (7.0-18.0) mg/dL Creatinine (0.6-1.0) mg/dL Est Cr Clr Drug Dosing mL/min Estimated GFR (MDRD) ml/min Glucose (74-106) mg/dL Calcium (8.5-10.1) mg/dL Magnesium (1.8-2.4) mg/dL Total Bilirubin (0.2-1.0) mg/dL AST (15-37) IU/L ALT (14-63) IU/L Alkaline Phosphatase (46-116) U/L Troponin I (0.000-0.056) ng/mL Total Protein (6.4-8.2) g/dL Albumin (3.4-5.0) g/dL Globulin (2.6-4.0) g/dL Albumin/Globulin Ratio (0.9-1.6) Free T4 (0.76-1.46) ng/dL Free T3 (2.18-3.98) pg/mL TSH 3rd Generation (0.36-3.74) uIU/mL HCG, Qual (NEG) Influenza Type A RNA NEGATIVE (NEGATIVE) RSV RNA (INAAT) NEGATIVE (NEGATIVE) Influenza Type B RNA NEGATIVE (NEGATIVE) SARS-CoV-2 RNA (SIENA) NEGATIVE (NEGATIVE) Blood Type A POSITIVE Antibody Screen NEGATIVE Result Diagrams: 08/19/20 08:45 08/19/20 08:45 Sepsis Event Note - Evaluation Sepsis Screening Result: No Definite Risk - Focused Exam Vital Signs: Vital Signs Temp Pulse Pulse Resp BP BP Pulse Ox 08/19/20 10:24 107 H 126/82 08/19/20 09:01 96.6 F L 140 H 39 H 140/82 99 - Problem List (1) Hyperthyroidism SNOMED Code(s): 26275426 ICD Code: E05.90 - THYROTOXICOSIS, UNSP WITHOUT THYROTOXIC CRISIS OR STORM Status: Acute Problem List Initiated/Reviewed/Updated: Yes Orders Last 24hrs: Active Orders 24 hr Category Date Time Status Admission Status [Patient Status] [ADT] Stat ADT 08/19/20 11:46 Active Oxygen Therapy [RC] PRN Care 08/19/20 12:05 Ordered VTE/DVT Education [RC] PER UNIT ROUTINE Care 08/19/20 12:05 Ordered Vital Signs [RC] Q4H Care 08/19/20 12:05 Ordered Thyroid or Neck (non vasc) [Head Neck Soft Tissue Bi] [ Exams 08/19/20 12:04 Ordered US] Urgent CBC WITH AUTO DIFF [HEME] AM Lab 08/20/20 05:11 Ordered CBC WITH AUTO DIFF [HEME] AM Lab 08/21/20 05:11 Ordered CBC WITH AUTO DIFF [HEME] AM Lab 08/22/20 05:11 Ordered COMPREHENSIVE METABOLIC PN,CMP [CHEM] AM Lab 08/20/20 05:11 Ordered COMPREHENSIVE METABOLIC PN,CMP [CHEM] AM Lab 08/21/20 05:11 Ordered COMPREHENSIVE METABOLIC PN,CMP [CHEM] AM Lab 08/22/20 05:11 Ordered Nicotine [Habitrol] Med 08/19/20 11:30 Active 21 mg TRDERM DAILY Resuscitation Status Routine Resus Stat 08/19/20 12:05 Ordered Medication Orders Nicotine (Habitrol) 21 mg TRDERM DAILY JOSE Last Admin: 08/19/20 11:22 Dose: 21 mg Documented by: JACQUIE Assessment/Plan Comment:: Assessment: 1. Symptomatic hyperthyroidism 2. Tachycardia 3. Past medical history: Melanoma receiving chemotherapy, HTN, depression/anxiety, fibromyalgia, polyneuropathy Plan: Admit to observation. Full code. I's and O's routine. vitals per routine Up ad kelly. Telemetry 1. Symptomatic hyperthyroidism; additional 25 mg atenolol will be provided this evening. Secondary to elevated T4 will provide methimazole 10 daily and adjust accordingly. Ultrasound of thyroid will be ordered; no overt nodule or goiter noted however. Continue on telemetry. Repeat labs in AM 2. Past medical history; Melanoma receiving chemotherapy; per session provided on August 02, 2020 (first dose) fibromyalgia, polyneuropathy, depression/anxiety <Nicho Montanez - Last Filed: 08/20/20 16:47> H&P History of Present Illness - General Admit Problem/Dx: Admission Diagnosis/Problem Admission Diagnosis/Problem Hyperthyroidism Left Chest Pain Score (Numeric/FACES): 4 generalized Pain Score (Numeric/FACES): 5 Exam - Vital Signs Vital Signs: Last Vital Signs Temp 36.8 C 08/20/20 11:30 Pulse 85 08/20/20 11:30 Resp 17 08/20/20 11:30 BP 137/56 L 08/20/20 11:30 Pulse Ox 96 08/20/20 11:30 - Patient Data Lab Results Last 24 hrs: Laboratory Results - last 24 hr 08/20/20 08/20/20 08/20/20 Range/Units 05:35 05:35 05:35 WBC 6.22 (4.0-11.0) K/uL RBC 3.75 L (4.30-5.90) M/uL Hgb 11.4 L (12.0-16.0) g/dL Hct 33.9 L (36.0-46.0) % MCV 90.4 (80.0-98.0) fL MCH 30.4 (27.0-32.0) pg MCHC 33.6 (31.0-37.0) g/dL RDW Std Deviation 38.1 (28.0-62.0) fl RDW Coeff of Smiley 12 (11.0-15.0) % Plt Count 279 (150-400) K/uL MPV 10.20 (7.40-12.00) fL Neut % (Auto) 49.8 (48.0-80.0) % Lymph % (Auto) 36.8 (16.0-40.0) % [place] % (Auto) 13.2 (0.0-15.0) % Eos % (Auto) 0.0 (0.0-7.0) % Baso % (Auto) 0.2 (0.0-1.5) % Neut # (Auto) 3.1 (1.4-5.7) K/uL Lymph # (Auto) 2.3 (0.6-2.4) K/uL [place] # (Auto) 0.8 (0.0-0.8) K/uL Eos # (Auto) 0.0 (0.0-0.7) K/uL Baso # (Auto) 0.0 (0.0-0.1) K/uL Nucleated RBC % 0.0 /100WBC Nucleated RBCs # 0 K/uL Sodium 140 (136-145) mmol/L Potassium 4.5 (3.5-5.1) mmol/L Chloride 107 (98-107) mmol/L Carbon Dioxide 25.5 (21.0-32.0) mmol/L BUN 16 (7.0-18.0) mg/dL Creatinine 0.5 L (0.6-1.0) mg/dL Est Cr Clr Drug Dosing 168.81 mL/min Estimated GFR (MDRD) > 60.0 ml/min Glucose 128 H (74-106) mg/dL Calcium 9.1 (8.5-10.1) mg/dL Total Bilirubin 0.2 (0.2-1.0) mg/dL AST 17 (15-37) IU/L ALT 50 (14-63) IU/L Alkaline Phosphatase 86 (46-116) U/L Total Protein 6.3 L (6.4-8.2) g/dL Albumin 2.9 L (3.4-5.0) g/dL Globulin 3.4 (2.6-4.0) g/dL Albumin/Globulin Ratio 0.9 (0.9-1.6) TSH 3rd Generation < 0.01 L (0.36-3.74) uIU/mL Result Diagrams: 08/20/20 05:35 08/20/20 05:35 Sepsis Event Note - Focused Exam Vital Signs: Vital Signs Temp Pulse Pulse Resp BP BP Pulse Ox 08/20/20 11:30 36.8 C 85 17 137/56 L 96 08/20/20 09:06 69 125/72 08/20/20 07:15 36.2 C 69 17 125/72 96 Assessment/Plan Comment:: I performed a history and physical exam of the patient and discussed management with resident. I have reviewed the residents note and agree with documented findings and plan unless otherwise specified in my note.
[2020-08-19] MEDS ORDERED: Methimazole 5 MG Tab PO ONE (13:59)
[2020-08-19] MEDS: Hydrocortisone Sodium Succinate 100 MG/2 ML SDV IV SCH ×2 (16:07→23:56)
[2020-08-19] MEDS: Lactated Ringers 1,000 ML IV SCH (16:08)
--- NOTE | 2020-08-19 17:09 | US ---
INDICATION: Symptomatic hyperthyroidism TECHNIQUE: Ultrasound thyroid with lewis-scale and color Doppler analysis. COMPARISON: None FINDINGS: Right lobe: 5.7 x 2.5 x 2.3 cm. Left lobe: 5.6 x 2.3 x 2.4 cm. Nodules: None. Suspicious calcifications: None. There is diffusely heterogeneous, bulky enlargement of the thyroid parenchyma. There is mild hyperemia appreciated within the bilateral thyroid lobes. The isthmus is moderately bulky measuring up to 1.2 centimeters. No evidence of lymphadenopathy or parathyroid mass. IMPRESSION: Marked diffuse enlargement and heterogeneous echogenicity with hyperemia consistent with likely developing sequela of acute thyroiditis. No evidence of solitary thyroid nodule. Dictated by Brian Cardona MD @ Aug 19 2020 5:05PM Signed by Dr. Brian Cardona @ Aug 19 2020 5:08PM
[2020-08-19] MEDS ORDERED: DULoxetine 60 MG Cap PO SCH (23:45)
[2020-08-20] MEDS: Lactated Ringers 1,000 ML IV SCH (00:06)
[2020-08-20 06:34] LABS: BLOOD UREA NITROGEN,BUN 16 mg/dL (7.0-18.0); CARBON DIOXIDE,CO2 25.5 mmol/L (21.0-32.0); CHLORIDE,CL 107 mmol/L (98-107); GLUCOSE RANDOM 128 mg/dL (74-106); POTASSIUM,K 4.5 mmol/L (3.5-5.1); SODIUM,NA 140 mmol/L (136-145)
[2020-08-20] MEDS: Hydrocortisone Sodium Succinate 100 MG/2 ML SDV IV SCH (07:23)
[2020-08-20] MEDS ORDERED: NALTREXONE 4.5 MG PO SCH ×2 (09:00→21:00)
[2020-08-20] MEDS ORDERED: Lisinopril 10 MG Tab PO SCH ×2 (09:00→21:00)
[2020-08-20] MEDS ORDERED: Atenolol 25 MG Tab PO SCH (09:00)
[2020-08-20] MEDS ORDERED: FLUOXETINE HCL 60 MG PO SCH (09:00)
[2020-08-20] MEDS ORDERED: Amitriptyline 25 MG Tab PO SCH ×2 (09:00→21:00)
[2020-08-20] MEDS ORDERED: Escitalopram 10 MG Tab PO SCH (09:00)
[2020-08-20] MEDS: Nicotine 21 MG/24 Hr Patch TRDERM SCH (09:06)
--- NOTE | 2020-08-20 10:36 | PCM.DCSUM1 ---
<Kamala Shields - Last Filed: 08/20/20 13:18> Discharge Summary - Hospital Course Free Text/Narrative:: Patient is a 34-year-old female with a significant past medical history of melanoma receiving chemotherapy; received first dose of chemotherapy on August 02, 2020, fibromyalgia, hypertension, ADHD, polyneuropathy; presenting with 3 days of racing heart sensation anxiety and nervousness. Patient was found to be tachycardic on EKG and an elevated T3 and T4 with a suppressed TSH while in the ED. This patient was also having chest discomfort; angiogram was ordered suggesting no acute PE. Patient was given atenolol 25 mg, 1 L fluid and admitted to the medical surgical floor under observation. Patient was given additional dose of atenolol 25 mg a same day and started on methimazole 10 mg secondary to her T4 being twice the upper limit of normal. Discontinued Adderall medication during admission. Ultrasound of thyroid was also ordered suggesting heterogeneous enlargement without nodules of thyroid consistent with thyroiditis. Discussed with patient possibility of chemotherapy being the culprit for her current thyrotoxicosis (opdivo). Patient does have a follow-up with Dr. Mosquera of oncology on August 23, 2020. Overnight telemetry unremarkable. Continued on methimazole 10 mg daily. Also initiated hydrocortisone 100 mg every 8 hours secondary to thyroid tenderness without mass and or nodules. Following morning patient states she feels much better, less anxious and no signs of tachycardia; vitals were stable. Patient requested discharge. Patient sent home with additional 7 days of prednisone 40 mg daily, methimazole 10 mg for 5 days and 25 mg of atenolol daily for 10 days. Primary care follow- up was also set up with pts PCP .patient was discharged in stable condition. Discharge condition stable, Disposition Home. Advised to follow-up with primary care, oncology and endocrinology. - Discharge Data Discharge Date: 08/20/20 Discharge Disposition: Home, Self-Care 01 Condition: Stable - Referral to Home Health Primary Care Physician: Kristen Jason, DO - Discharge Diagnosis/Problem(s) (1) Hyperthyroidism SNOMED Code(s): 72273216 ICD Code: E05.90 - THYROTOXICOSIS, UNSP WITHOUT THYROTOXIC CRISIS OR STORM Status: Acute - Discharge Plan Prescriptions/Med Rec: predniSONE [Prednisone] 40 mg PO DAILY 7 Days #14 tablet Methimazole [Tapazole] 10 mg PO DAILY 5 Days #5 tablet atenoloL [Tenormin] 25 mg PO DAILY 10 Days #10 tablet Home Medications: Home Meds Amitriptyline [Elavil] 50 mg PO DAILY 08/19/20 [History] Amphetamine/Dextroamphetamine [Adderall] 20 mg PO TID 08/19/20 [History] DULoxetine HCl [Duloxetine HCl] 60 mg PO BEDTIME 08/19/20 [History] Escitalopram [Lexapro] 20 mg PO DAILY 08/19/20 [History] Naltrexone 4.5 mg PO BEDTIME 08/19/20 [History] Ondansetron [Zofran] 4 mg PO ASDIRECTED PRN 08/19/20 [History] lisinopriL [Lisinopril] 20 mg PO DAILY 08/19/20 [History] Methimazole [Tapazole] 10 mg PO DAILY 5 Days #5 tablet 08/20/20 [Rx] atenoloL [Tenormin] 25 mg PO DAILY 10 Days #10 tablet 08/20/20 [Rx] predniSONE [Prednisone] 40 mg PO DAILY 7 Days #14 tablet 08/20/20 [Rx] Patient Handouts: Methimazole tablets, Atenolol Tablets, Prednisone tablets Referrals: Kristen Jason DO [Primary Care Provider] - - Discharge Summary/Plan Comment DC Time >30 min.: No - Patient Data Vitals - Most Recent: Last Vital Signs Temp 97.1 F 08/20/20 07:15 Pulse 69 08/20/20 09:06 Resp 17 08/20/20 07:15 BP 125/72 08/20/20 09:06 Pulse Ox 96 08/20/20 07:15 Weight - Most Recent: 102.784 kg I&O - Last 24 hours: Intake & Output 08/19/20 08/20/20 08/20/20 22:59 06:59 14:59 Intake Total 360 2433 Output Total 100 0 Balance 260 2433 Lab Results - Last 24 hrs: Laboratory Results - last 24 hr 08/19/20 08/19/20 08/19/20 Range/Units 09:15 12:47 14:07 WBC (4.0-11.0) K/uL RBC (4.30-5.90) M/uL Hgb (12.0-16.0) g/dL Hct (36.0-46.0) % MCV (80.0-98.0) fL MCH (27.0-32.0) pg MCHC (31.0-37.0) g/dL RDW Std Deviation (28.0-62.0) fl RDW Coeff of Smiley (11.0-15.0) % Plt Count (150-400) K/uL MPV (7.40-12.00) fL Neut % (Auto) (48.0-80.0) % Lymph % (Auto) (16.0-40.0) % [place] % (Auto) (0.0-15.0) % Eos % (Auto) (0.0-7.0) % Baso % (Auto) (0.0-1.5) % Neut # (Auto) (1.4-5.7) K/uL Lymph # (Auto) (0.6-2.4) K/uL [place] # (Auto) (0.0-0.8) K/uL Eos # (Auto) (0.0-0.7) K/uL Baso # (Auto) (0.0-0.1) K/uL Nucleated RBC % /100WBC Nucleated RBCs # K/uL Lactate 1.4 (0.20-2.00) mmol/L Sodium (136-145) mmol/L Potassium (3.5-5.1) mmol/L Chloride (98-107) mmol/L Carbon Dioxide (21.0-32.0) mmol/L BUN (7.0-18.0) mg/dL Creatinine (0.6-1.0) mg/dL Est Cr Clr Drug Dosing mL/min Estimated GFR (MDRD) ml/min Glucose (74-106) mg/dL Calcium (8.5-10.1) mg/dL Total Bilirubin (0.2-1.0) mg/dL AST (15-37) IU/L ALT (14-63) IU/L Alkaline Phosphatase (46-116) U/L Total Protein (6.4-8.2) g/dL Albumin (3.4-5.0) g/dL Globulin (2.6-4.0) g/dL Albumin/Globulin Ratio (0.9-1.6) TSH 3rd Generation (0.36-3.74) uIU/mL Urine Opiates Screen NEGATIVE (NEGATIVE) Ur Oxycodone Screen NEGATIVE (NEGATIVE) Urine Methadone Screen NEGATIVE (NEGATIVE) Ur Barbiturates Screen NEGATIVE (NEGATIVE) Ur Phencyclidine Scrn NEGATIVE (NEGATIVE) Ur Amphetamine Screen POSITIVE (NEGATIVE) U Methamphetamines Scrn NEGATIVE (NEGATIVE) U Benzodiazepines Scrn NEGATIVE (NEGATIVE) U Cocaine Metab Screen NEGATIVE (NEGATIVE) U Marijuana (THC) Screen NEGATIVE (NEGATIVE) Blood Type A POSITIVE Antibody Screen NEGATIVE 08/20/20 08/20/20 08/20/20 Range/Units 05:35 05:35 05:35 WBC 6.22 (4.0-11.0) K/uL RBC 3.75 L (4.30-5.90) M/uL Hgb 11.4 L (12.0-16.0) g/dL Hct 33.9 L (36.0-46.0) % MCV 90.4 (80.0-98.0) fL MCH 30.4 (27.0-32.0) pg MCHC 33.6 (31.0-37.0) g/dL RDW Std Deviation 38.1 (28.0-62.0) fl RDW Coeff of Smiley 12 (11.0-15.0) % Plt Count 279 (150-400) K/uL MPV 10.20 (7.40-12.00) fL Neut % (Auto) 49.8 (48.0-80.0) % Lymph % (Auto) 36.8 (16.0-40.0) % [place] % (Auto) 13.2 (0.0-15.0) % Eos % (Auto) 0.0 (0.0-7.0) % Baso % (Auto) 0.2 (0.0-1.5) % Neut # (Auto) 3.1 (1.4-5.7) K/uL Lymph # (Auto) 2.3 (0.6-2.4) K/uL [place] # (Auto) 0.8 (0.0-0.8) K/uL Eos # (Auto) 0.0 (0.0-0.7) K/uL Baso # (Auto) 0.0 (0.0-0.1) K/uL Nucleated RBC % 0.0 /100WBC Nucleated RBCs # 0 K/uL Lactate (0.20-2.00) mmol/L Sodium 140 (136-145) mmol/L Potassium 4.5 (3.5-5.1) mmol/L Chloride 107 (98-107) mmol/L Carbon Dioxide 25.5 (21.0-32.0) mmol/L BUN 16 (7.0-18.0) mg/dL Creatinine 0.5 L (0.6-1.0) mg/dL Est Cr Clr Drug Dosing 168.81 mL/min Estimated GFR (MDRD) > 60.0 ml/min Glucose 128 H (74-106) mg/dL Calcium 9.1 (8.5-10.1) mg/dL Total Bilirubin 0.2 (0.2-1.0) mg/dL AST 17 (15-37) IU/L ALT 50 (14-63) IU/L Alkaline Phosphatase 86 (46-116) U/L Total Protein 6.3 L (6.4-8.2) g/dL Albumin 2.9 L (3.4-5.0) g/dL Globulin 3.4 (2.6-4.0) g/dL Albumin/Globulin Ratio 0.9 (0.9-1.6) TSH 3rd Generation < 0.01 L (0.36-3.74) uIU/mL Urine Opiates Screen (NEGATIVE) Ur Oxycodone Screen (NEGATIVE) Urine Methadone Screen (NEGATIVE) Ur Barbiturates Screen (NEGATIVE) Ur Phencyclidine Scrn (NEGATIVE) Ur Amphetamine Screen (NEGATIVE) U Methamphetamines Scrn (NEGATIVE) U Benzodiazepines Scrn (NEGATIVE) U Cocaine Metab Screen (NEGATIVE) U Marijuana (THC) Screen (NEGATIVE) Blood Type Antibody Screen Med Orders - Current: Current Medications Amitriptyline HCl (Elavil) 50 mg PO BEDTIME JOSE Atenolol (Tenormin) 25 mg PO DAILY JOSE Last Admin: 08/20/20 09:06 Dose: 25 mg Documented by: Duloxetine HCl (Cymbalta) 60 mg PO BEDTIME JOSE Last Admin: 08/20/20 00:03 Dose: 60 mg Documented by: Escitalopram Oxalate (Lexapro) 20 mg PO DAILY [facility] Hydrocortisone Sodium Succinate (Solu-Cortef) 100 mg IV Q8H [facility] Last Admin: 08/20/20 07:23 Dose: 100 mg Documented by: Lactated Ringer's (Ringers, Lactated) 1,000 mls @ 125 mls/hr IV ASDIRECTED [facility] Last Admin: 08/20/20 00:06 Dose: 125 mls/hr Documented by: Lisinopril (Prinivil) 20 mg PO BEDTIME [facility] Lorazepam (Ativan) 1 mg IVPUSH Q4H PRN PRN Reason: Anxiety Nicotine (Habitrol) 21 mg TRDERM DAILY [facility] Last Admin: 08/20/20 09:06 Dose: 21 mg Documented by: Naltrexone 4.5 Mg 1 each PO DAILY [facility] Discontinued Medications Amitriptyline HCl (Elavil) 50 mg PO DAILY [facility] Last Admin: 08/20/20 10:24 Dose: Not Given Documented by: Aspirin (Aspirin) 324 mg PO ONETIME ONE Stop: 08/19/20 08:59 Last Admin: 08/19/20 09:20 Dose: 324 mg Documented by: Atenolol (Tenormin) 25 mg PO ONETIME ONE Stop: 08/19/20 10:01 Last Admin: 08/19/20 10:24 Dose: 25 mg Documented by: Atenolol (Tenormin) 25 mg PO ONETIME ONE Stop: 08/19/20 18:01 Last Admin: 08/19/20 18:17 Dose: 25 mg Documented by: Duloxetine HCl (Cymbalta) 60 mg PO BEDTIME [facility] Lactated Ringer's (Ringers, Lactated) 1,000 mls @ 500 mls/hr IV .BOLUS ONE Stop: 08/19/20 10:57 Last Admin: 08/19/20 09:19 Dose: 500 mls/hr Documented by: Iopamidol (Isovue Multipack-370 (76%)) 70 ml IVPUSH ONETIME ONE Stop: 08/19/20 10:25 Last Admin: 08/19/20 10:25 Dose: 70 ml Documented by: Lisinopril (Prinivil) 20 mg PO DAILY [facility] Last Admin: 08/20/20 10:25 Dose: Not Given Documented by: Lorazepam (Ativan) 1 mg IVPUSH ONETIME ONE Stop: 08/19/20 08:59 Last Admin: 08/19/20 09:20 Dose: 1 mg Documented by: Methimazole (Methimazole) 10 mg PO DAILY ONE Stop: 08/19/20 14:00 Last Admin: 08/19/20 16:06 Dose: 10 mg Documented by: Nicotine (Habitrol) Confirm Administered Dose 21 mg .ROUTE .STK-MED ONE Stop: 08/19/20 11:19 Last Admin: 08/19/20 11:25 Dose: Not Given Documented by: <Nicho Montanez - Last Filed: 08/20/20 16:42> Discharge Summary - Hospital Course Free Text/Narrative:: I have seen and evaluated the patient and agree with the residents note unless specified in my note - Referral to Home Health Primary Care Physician: Kristen Jason DO - Patient Data Vitals - Most Recent: Last Vital Signs Temp 36.8 C 08/20/20 11:30 Pulse 85 08/20/20 11:30 Resp 17 08/20/20 11:30 BP 137/56 L 08/20/20 11:30 Pulse Ox 96 08/20/20 11:30 I&O - Last 24 hours: Intake & Output 08/20/20 08/20/20 08/20/20 06:59 14:59 22:59 Intake Total 2433 1200 Output Total 0 1300 Balance 2433 -100 Lab Results - Last 24 hrs: Laboratory Results - last 24 hr 08/20/20 08/20/20 08/20/20 Range/Units 05:35 05:35 05:35 WBC 6.22 (4.0-11.0) K/uL RBC 3.75 L (4.30-5.90) M/uL Hgb 11.4 L (12.0-16.0) g/dL Hct 33.9 L (36.0-46.0) % MCV 90.4 (80.0-98.0) fL MCH 30.4 (27.0-32.0) pg MCHC 33.6 (31.0-37.0) g/dL RDW Std Deviation 38.1 (28.0-62.0) fl RDW Coeff of Smiley 12 (11.0-15.0) % Plt Count 279 (150-400) K/uL MPV 10.20 (7.40-12.00) fL Neut % (Auto) 49.8 (48.0-80.0) % Lymph % (Auto) 36.8 (16.0-40.0) % [place] % (Auto) 13.2 (0.0-15.0) % Eos % (Auto) 0.0 (0.0-7.0) % Baso % (Auto) 0.2 (0.0-1.5) % Neut # (Auto) 3.1 (1.4-5.7) K/uL Lymph # (Auto) 2.3 (0.6-2.4) K/uL [place] # (Auto) 0.8 (0.0-0.8) K/uL Eos # (Auto) 0.0 (0.0-0.7) K/uL Baso # (Auto) 0.0 (0.0-0.1) K/uL Nucleated RBC % 0.0 /100WBC Nucleated RBCs # 0 K/uL Sodium 140 (136-145) mmol/L Potassium 4.5 (3.5-5.1) mmol/L Chloride 107 (98-107) mmol/L Carbon Dioxide 25.5 (21.0-32.0) mmol/L BUN 16 (7.0-18.0) mg/dL Creatinine 0.5 L (0.6-1.0) mg/dL Est Cr Clr Drug Dosing 168.81 mL/min Estimated GFR (MDRD) > 60.0 ml/min Glucose 128 H (74-106) mg/dL Calcium 9.1 (8.5-10.1) mg/dL Total Bilirubin 0.2 (0.2-1.0) mg/dL AST 17 (15-37) IU/L ALT 50 (14-63) IU/L Alkaline Phosphatase 86 (46-116) U/L Total Protein 6.3 L (6.4-8.2) g/dL Albumin 2.9 L (3.4-5.0) g/dL Globulin 3.4 (2.6-4.0) g/dL Albumin/Globulin Ratio 0.9 (0.9-1.6) TSH 3rd Generation < 0.01 L (0.36-3.74) uIU/mL Med Orders - Current: Current Medications Discontinued Medications Amitriptyline HCl (Elavil) 50 mg PO DAILY [facility] Last Admin: 08/20/20 10:24 Dose: Not Given Documented by: Amitriptyline HCl (Elavil) 50 mg PO BEDTIME [facility] Aspirin (Aspirin) 324 mg PO ONETIME ONE Stop: 08/19/20 08:59 Last Admin: 08/19/20 09:20 Dose: 324 mg Documented by: Atenolol (Tenormin) 25 mg PO ONETIME ONE Stop: 08/19/20 10:01 Last Admin: 08/19/20 10:24 Dose: 25 mg Documented by: Atenolol (Tenormin) 25 mg PO DAILY [facility] Last Admin: 08/20/20 09:06 Dose: 25 mg Documented by: Atenolol (Tenormin) 25 mg PO ONETIME ONE Stop: 08/19/20 18:01 Last Admin: 08/19/20 18:17 Dose: 25 mg Documented by: Duloxetine HCl (Cymbalta) 60 mg PO BEDTIME [facility] Duloxetine HCl (Cymbalta) 60 mg PO BEDTIME [facility] Last Admin: 08/20/20 00:03 Dose: 60 mg Documented by: Escitalopram Oxalate (Lexapro) 20 mg PO DAILY [facility] Hydrocortisone Sodium Succinate (Solu-Cortef) 100 mg IV Q8H [facility] Last Admin: 08/20/20 07:23 Dose: 100 mg Documented by: Lactated Ringer's (Ringers, Lactated) 1,000 mls @ 500 mls/hr IV .BOLUS ONE Stop: 08/19/20 10:57 Last Admin: 08/19/20 09:19 Dose: 500 mls/hr Documented by: Lactated Ringer's (Ringers, Lactated) 1,000 mls @ 125 mls/hr IV ASDIRECTED [facility] Last Admin: 08/20/20 00:06 Dose: 125 mls/hr Documented by: Iopamidol (Isovue Multipack-370 (76%)) 70 ml IVPUSH ONETIME ONE Stop: 08/19/20 10:25 Last Admin: 08/19/20 10:25 Dose: 70 ml Documented by: Lisinopril (Prinivil) 20 mg PO DAILY [facility] Last Admin: 08/20/20 10:25 Dose: Not Given Documented by: Lisinopril (Prinivil) 20 mg PO BEDTIME [facility] Lorazepam (Ativan) 1 mg IVPUSH ONETIME ONE Stop: 08/19/20 08:59 Last Admin: 08/19/20 09:20 Dose: 1 mg Documented by: Lorazepam (Ativan) 1 mg IVPUSH Q4H PRN PRN Reason: Anxiety Methimazole (Methimazole) 10 mg PO DAILY ONE Stop: 08/19/20 14:00 Last Admin: 08/19/20 16:06 Dose: 10 mg Documented by: Nicotine (Habitrol) 21 mg TRDERM DAILY [facility] Last Admin: 08/20/20 09:06 Dose: 21 mg Documented by: Nicotine (Habitrol) Confirm Administered Dose 21 mg .ROUTE .STK-MED ONE Stop: 08/19/20 11:19 Last Admin: 08/19/20 11:25 Dose: Not Given Documented by: Naltrexone 4.5 Mg 1 each PO DAILY [facility] Last Admin: 08/20/20 10:47 Dose: Not Given Documented by: Naltrexone 4.5 Mg 1 each PO BEDTIME [facility]
[2020-08-20 14:33] VITALS: BP 137/56; PULSE 85
[2020-08-20] MEDS ORDERED: DULoxetine 60 MG Cap PO SCH (21:00)
== END 2020-08-20 13:10 | disposition home or self-care (01) | DRG 644 ==
LOC: MW.ED 08:20 → MW.MS 11:46
PROVIDERS: ADMIT Student in an Organized Health Care Education/Training Program; ATTEND Student in an Organized Health Care Education/Training Program
DX: E05.90 Thyrotoxicosis, unspecified without thyrotoxic crisis or storm (principal); E87.2 Acidosis; C43.9 Malignant melanoma of skin, unspecified; F32.9 Major depressive disorder, single episode, unspecified; E66.9 Obesity, unspecified; F41.9 Anxiety disorder, unspecified; I10 Essential (primary) hypertension; Z20.822 Contact with and (suspected) exposure to COVID-19; G62.9 Polyneuropathy, unspecified; M79.7 Fibromyalgia; F17.200 Nicotine dependence, unspecified, uncomplicated; Z88.1 Allergy status to other antibiotic agents; Z91.040 Latex allergy status; Z88.2 Allergy status to sulfonamides; Z79.52 Long term (current) use of systemic steroids; Z79.899 Other long term (current) drug therapy; Z87.440 Personal history of urinary (tract) infections; Z90.49 Acquired absence of other specified parts of digestive tract; Z68.33 Body mass index [BMI] 33.0-33.9, adult
CPT/HCPCS: 0241U; 36415; 71045; 71045-26; 71275; 71275-26; 76536; 76536-26; 80053; 80305-QW; 83605; 83735; 84439; 84443; 84481; 84484; 84703; 85025; 85610; 86850; 86900; 86901; 93005; A9270-GY; J1720; J2060; J7120; Q9967

== ENCOUNTER 2020-10-06 11:34 | Day surgery (SDC) | payer SELFPAY ==
[2020-10-06] MEDS ORDERED: Ondansetron 4 MG/2 ML SDV ONE (12:06)
[2020-10-06] MEDS ORDERED: Midazolam 1 MG/ML 2 ML SDV ONE (12:06)
[2020-10-06] MEDS ORDERED: fentaNYL 100 MCG/2 ML SDV ONE (12:06)
[2020-10-06] MEDS ORDERED: Propofol 200 MG/20 ML SDV ONE (12:06)
[2020-10-06] MEDS ORDERED: Bupivacaine 25%/EPINEPHrine/PF 30 ML ONE (12:08)
--- NOTE | 2020-10-06 12:20 | PCM.PREANE ---
Preanesthetic Assessment - Anesthesia/Transfusion/Family Hx Anesthesia History: Prior Anesthesia Without Reaction Transfusion History: No Prior Transfusion(s) Intubation History: Unknown - Review of Systems General: No Symptoms Pulmonary: No Symptoms Cardiovascular: No Symptoms Gastrointestinal: No Symptoms Neurological: No Symptoms Other: Reports: None - Physical Assessment Vital Signs: Last Vital Signs Temp 36.8 C 10/06/20 12:00 Pulse 106 H 10/06/20 12:00 Resp 16 10/06/20 12:00 BP 144/94 H 10/06/20 12:00 Pulse Ox 98 10/06/20 12:00 Height: 1.75 m Weight: 108.862 kg ASA Class: 3E Mental Status: Alert & Oriented x3 Airway Class: Mallampati = 2 Dentition: Reports: Normal Dentition Thyro-Mental Finger Breadths: 3 Mouth Opening Finger Breadths: 3 ROM/Head Extension: Full Lungs: Clear to Auscultation, Normal Respiratory Effort Cardiovascular: Regular Rate, Regular Rhythm - Lab Values: Laboratory Last Values WBC 4.45 K/uL (4.0-11.0) 10/06/20 11:50 RBC 4.51 M/uL (4.30-5.90) 10/06/20 11:50 Hgb 13.6 g/dL (12.0-16.0) 10/06/20 11:50 Hct 41.3 % (36.0-46.0) 10/06/20 11:50 MCV 91.6 fL (80.0-98.0) 10/06/20 11:50 MCH 30.2 pg (27.0-32.0) 10/06/20 11:50 MCHC 32.9 g/dL (31.0-37.0) 10/06/20 11:50 RDW Std Deviation 52.9 fl (28.0-62.0) 10/06/20 11:50 RDW Coeff of Smiley 16 % (11.0-15.0) H 10/06/20 11:50 Plt Count 652 K/uL (150-400) H 10/06/20 11:50 MPV 9.10 fL (7.40-12.00) 10/06/20 11:50 Add Manual Diff YES 10/06/20 11:50 Neutrophils % (Manual) 68 % (48.0-80.0) 10/06/20 11:50 Band Neutrophils % 6 % 10/06/20 11:50 Lymphocytes % (Manual) 22 % (16.0-40.0) 10/06/20 11:50 Monocytes % (Manual) 3 % (0.0-15.0) 10/06/20 11:50 Metamyelocytes % 1 % 10/06/20 11:50 Nucleated RBC % 0.0 /100WBC 10/06/20 11:50 Absolute Seg Neuts 3.0 (1.4-5.7) 10/06/20 11:50 Band Neutrophils # 0.3 10/06/20 11:50 Lymphocytes # (Manual) 1.0 (0.6-2.4) 10/06/20 11:50 Monocytes # (Manual) 0.1 (0.0-0.8) 10/06/20 11:50 Absolute Metamyelocyte 0 10/06/20 11:50 Nucleated RBCs # 0 K/uL 10/06/20 11:50 Platelet Estimate INCREASED 10/06/20 11:50 INR 0.94 10/06/20 11:50 APTT 24.8 SEC (18.6-31.3) 10/06/20 11:50 - Allergies Allergies/Adverse Reactions: Allergies Allergy/AdvReac Type Severity Reaction Status Date / Time aluminum hydroxide Allergy Hives Verified 08/19/20 14:39 ciprofloxacin [From Cipro] Allergy Swelling Verified 08/19/20 14:39 ciprofloxacin HCl Allergy Swelling Verified 08/19/20 14:39 [From Cipro] latex Allergy Hives Verified 08/19/20 14:40 sulfamethoxazole Allergy Hives Verified 08/19/20 14:41 [From Bactrim] trimethoprim [From Bactrim] Allergy Hives Verified 08/19/20 14:41 - Acknowledgements Anesthesia Type Planned: MAC (The patient understands and accepts the anesthetic risks and benefits of MAC. All questions answered. Consent signed. ) Pt an Appropriate Candidate for the Planned Anesthesia: Yes Alternatives and Risks of Anesthesia Discussed w Pt/Guardian: Yes Pt/Guardian Understands and Agrees with Anesthesia Plan: Yes PreAnesthesia Questionnaire HEENT History: Reports: None Other HEENT History: wears eyeglasses Cardiovascular History: Reports: None Respiratory History: Reports: Other (See Below) (chronic tobacco use.) Other Respiratory History: seasonal allergy asthma Gastrointestinal History: Reports: GERD (side effect from prednisone.) Other Gastrointestinal History: gluten allergy Genitourinary History: Reports: UTI, Recurrent, Other (See Below) [employer] History: Reports: Musculoskeletal History: Reports: None Other Musculoskeletal History: disc problem, minor pain only since surgery Neurological History: Reports: Migraines Psychiatric History: Reports: Depression Endocrine/Metabolic History: Reports: Hyperthyroidism, Obesity/BMI 30+, Other (See Below) (ON CHRONIC PREDNISONE FOR LIVER, and patient not quite sure why.) Hematologic History: Reports: None Immunologic History: Reports: None Oncologic (Cancer) History: Reports: None Dermatologic History: Reports: None, Melanoma (malignant melanoma-on chemotherapy. melonoma on left wrist, and left elbow.) - Infectious Disease History Infectious Disease History: Reports: Chicken Pox, Other (See Below) (COVID NEGATIVE) - Past Surgical History Head Surgeries/Procedures: Reports: None GI Surgical History: Reports: Appendectomy, Cholecystectomy Neurological Surgical History: Reports: Spinal Fusion Other Neurological Surgeries/Procedures: L4-L5 fusion Musculoskeletal Surgical History: Reports: Other (See Below) Other Musculoskeletal Surgeries/Procedures:: L4-L5 fusion Other Surgical History Comment: portacath insertion - History Comment History Comment: etoh "1x a month" - SUBSTANCE USE Tobacco Use Within Last Twelve Months: Cigarettes (for 12 years) Recreational Drug Use History: No - HOME MEDS Home Medications: Home Meds Amitriptyline [Elavil] 50 mg PO DAILY 08/19/20 [History] Amphetamine/Dextroamphetamine [Adderall] 20 mg PO TID 08/19/20 [History] DULoxetine HCl [Duloxetine HCl] 60 mg PO BEDTIME 08/19/20 [History] Escitalopram [Lexapro] 20 mg PO DAILY 08/19/20 [History] Naltrexone 4.5 mg PO BEDTIME 08/19/20 [History] Ondansetron [Zofran] 4 mg PO ASDIRECTED PRN 08/19/20 [History] lisinopriL [Lisinopril] 20 mg PO DAILY 08/19/20 [History] Methimazole [Tapazole] 10 mg PO DAILY 5 Days #5 tablet 08/20/20 [Rx] atenoloL [Tenormin] 25 mg PO DAILY 10 Days #10 tablet 08/20/20 [Rx] predniSONE [Prednisone] 40 mg PO DAILY 7 Days #14 tablet 08/20/20 [Rx] Cetirizine [ZyrTEC] 10 mg PO DAILY 10/06/20 [History] Cholecalciferol (Vitamin D3) [Vitamin D3] 10/06/20 [History] Diclofenac Sodium 1 tab PO DAILY 10/06/20 [History] Lactobacillus Combination No.4 [Probiotic] 1 tab PO DAILY 10/06/20 [History] Levothyroxine 75 mcg PO ACBREAKFAST 10/06/20 [History] Lidocaine/Prilocaine [Lidocaine-Prilocaine Cream] 1 tab PO DAILY 10/06/20 [History] Loratadine/Pseudoephedrine [Loratadine-D 24Hr Tablet] 1 tab PO DAILY 10/06/20 [History] Multivitamin 1 tab PO DAILY 10/06/20 [History] Omeprazole 20 mg PO DAILY 10/06/20 [History]
[2020-10-06 12:27] LABS: CARBON DIOXIDE,CO2 30.3 mmol/L (21.0-32.0); POTASSIUM,K 4.4 mmol/L (3.5-5.1)
[2020-10-06] MEDS ORDERED: ceFAZolin 2 GM in Premix Bag 1 BAG IV ONE (12:34)
--- NOTE | 2020-10-06 12:34 | PCM.SN.2 ---
- Free Text/Narrative Note: pt seen, chart reviewed; port exposed, surgical emergency, urgently take to OR to remove port; [id number]
[2020-10-06] MEDS ORDERED: Acetaminophen 1,000 MG in Premix Bag 1 BAG IV ONE (13:58)
--- NOTE | 2020-10-06 14:41 | PCM.POSTAN ---
POST ANESTHESIA ASSESSMENT - MENTAL STATUS Mental Status: Alert, Oriented - VITAL SIGNS Vital Signs: Last Vital Signs Temp 36.8 C 10/06/20 13:44 Pulse 71 10/06/20 14:35 Resp 11 L 10/06/20 14:35 BP 130/81 10/06/20 14:35 Pulse Ox 95 10/06/20 14:35 - RESPIRATORY Respiratory Status: Respiratory Rate WNL, Airway Patent, O2 Saturation Stable - CARDIOVASCULAR CV Status: Pulse Rate WNL, Blood Pressure Stable - GASTROINTESTINAL GI Status: No Symptoms - POST OP HYDRATION Hydration Status: Adequate & Stable - OBSERVATIONS Free Text/Narrative:: The patient is awake, alert, and in no acute distressed. There were no apparent anesthetic complications at this time. Discharge per criteria.
--- NOTE | 2020-10-06 14:41 | PCM.OPNOTE ---
- General Post-Op/Procedure Note Date of Surgery/Procedure: 10/06/20 Operative Procedure(s): infected portacath R removal Condition: Good Free Text/Narrative:: Intake & Output 10/05/20 10/06/20 10/06/20 22:59 06:59 14:59 Intake Total 300 Balance 300
--- NOTE | 2020-10-06 14:44 | PCM.OPNOTE ---
- General Post-Op/Procedure Note Date of Surgery/Procedure: 10/06/20 Operative Procedure(s): portacath RIJ removal Findings: see [id number] Pre Op Diagnosis: infected portacath Post-Op Diagnosis: Same Anesthesia Technique: Moderate Sedation Primary Surgeon: Gera Rangel Complications: None Condition: Good Free Text/Narrative:: Intake & Output 10/05/20 10/06/20 10/06/20 22:59 06:59 14:59 Intake Total 300 Balance 300
[2020-10-06] MEDS ORDERED: ceFAZolin 1 GM in Premix Bag 1 BAG IV SCH ×2 (14:45→21:15)
--- NOTE | 2020-10-06 15:59 | OR ---
SURGEON: Gera Rangel MD DATE OF PROCEDURE: 10/06/2020 PREOPERATIVE DIAGNOSIS: Infected right Port-A-Cath. POSTOPERATIVE DIAGNOSIS: Infected right Port-A-Cath. PROCEDURE PERFORMED: Removal. PRIMARY SURGEON: Gera Rangel MD COMPLICATIONS: None. FINDINGS: The Port-A-Cath is completely exposed and the skin is a little bit full of gunk or gums and so this is a pretty contaminated case. No purulent drainage observed and the catheter tip is intact. DESCRIPTION OF PROCEDURE: The patient was taken to the operating room, placed in a supine position. Upon the induction of mild general sedation, the patient's Port-A-Cath area was prepped and draped in a sterile fashion. The Port-A-Cath was completely exposed. The skin is retrieved with opening about the size of 3 x 2 cm and the surrounding is full of gunk or gums, suggested it has been there opening for quite a while and it is not stitch anchored. Local anesthetic was given and then the Port-A-Cath just popped out and put pressure on the IJ for about 3 minutes. After that, Port-A-Cath completely withdrawn with no resistance at all. Examination of the tip suggests the tip is intact. The area was then cleaned as best we can using an iodoform gauze and then closed with two stitches of 2-0 Prolene and a 0.5 inch plain gauze soaked with Betadine was placed there to occupy the space and followed by pre-dressed dressing. The Betadine gauze will be removed likely tomorrow. The patient will be admitted for observation. The patient tolerated the procedure well. There were no intraoperative complications. Dr. Rangel was present through the whole procedure. CASS / PRAVEENA /[id number]
--- NOTE | 2020-10-06 16:13 | CONS ---
DATE OF CONSULTATION: 10/06/2020 DATE OF : 1985 PRIMARY CARE PHYSICIAN: Destiny Soto MD Consult was called, the patient is seen 3 hours later as the patient had to take care of some personal things before coming to the emergency room. Consulting question is port exposed. HISTORY OF PRESENT ILLNESS: The patient is a 34-year-old who has metastatic melanoma and with amputation of the left 5th digit and has been on chemotherapy. She was noted to have a scab on top of the port and the scab was removed by the patient yesterday around 7 p.m. and the port is completely exposed and now seen primary care today and was told to come to emergency room, and the patient finally showed up around 11 o'clock. The patient remarked that the port was placed on September 06 for chemotherapy and the last chemotherapy was August 23 and was on hold because of liver problem. Currently, the patient denies fever, chills, or diarrhea. Denied bleeding, and the patient in fact had breakfast this morning around 7 o'clock. ALLERGIES: Please refer to nursing for details. MEDICATIONS: Please refer to nursing for details. PAST MEDICAL HISTORY: No diabetes, ME, CVA, hypertension. Has metastatic melanoma. PAST SURGICAL HISTORY: Has appendectomy. PHYSICAL EXAMINATION: GENERAL: A very pleasant lady, smiled to the doctor, in no acute distress. No breathing problem. No shortness of breath. No pain. HEENT: Normocephalic and atraumatic. Sclerae are anicteric. LUNGS: Clear to auscultation. HEART: Regular rate and rhythm. SKIN: On the right chest, there is a port completely exposed and the incision site above the neck also has a black silhouette, suggests also the wound exposed. IMPRESSION: Exposed port, which is a surgical emergency. We will take the patient urgently to the operating room. Risks and benefits discussed with the patient. The patient concurred to proceed as planned. We will give some IV antibiotic and remove the port in the operating room. Because of the liver problem and because of the port exposure, the whole team, Anesthesiology team and myself, completely understand the urgency and the emergency of the situation. CASS / PRAVEENA /[id number]
--- NOTE | 2020-10-06 17:01 | PCM48HPAN ---
Post Anesthesia Note - EVALUATION WITHIN 48HRS OF ANESTHETIC Vital Signs in Normal Range: Yes Patient Participated in Evaluation: Yes Respiratory Function Stable: Yes Airway Patent: Yes Cardiovascular Function Stable: Yes Hydration Status Stable: Yes Pain Control Satisfactory: Yes Nausea and Vomiting Control Satisfactory: Yes Mental Status Recovered: Yes Vital Signs: Last Vital Signs Temp 36.6 C 10/06/20 15:06 Pulse 63 10/06/20 16:45 Resp 20 10/06/20 16:15 BP 120/81 10/06/20 16:45 Pulse Ox 97 10/06/20 16:15
[2020-10-06 18:44] VITALS: BP 148/76; PULSE 85
== END 2020-10-06 18:30 | disposition home or self-care (01) ==
LOC: MW.ED 11:34 → MW.SDS 12:14 → MW.MS 14:31 → MW.SDS 18:30
PROVIDERS: ATTEND Surgery
DX: T80.212A Local infection due to central venous catheter, initial encounter (principal); C43.72 Malignant melanoma of left lower limb, including hip; E66.9 Obesity, unspecified; F17.210 Nicotine dependence, cigarettes, uncomplicated; Z01.812 Encounter for preprocedural laboratory examination; Z20.822 Contact with and (suspected) exposure to COVID-19; Z89.422 Acquired absence of other left toe(s); Z98.890 Other specified postprocedural states; Z88.2 Allergy status to sulfonamides; Z88.1 Allergy status to other antibiotic agents; Z88.8 Allergy status to other drugs, medicaments and biological substances; Z91.040 Latex allergy status; Z79.899 Other long term (current) drug therapy; Z79.890 Hormone replacement therapy
CPT/HCPCS: 36415; 36590; 80053; 84703; 85025; 85610; 85730; 87635; J0131; J2250; J2405; J2704; J3010; U0002

== ENCOUNTER 2020-12-20 21:15 | Emergency (ER) | payer SELFPAY ==
[2020-12-20] MEDS ORDERED: Morphine 4 MG/ML Syringe IVPUSH ONE (21:35)
--- NOTE | 2020-12-20 21:48 | EDM.PDOC ---
ED HPI GENERAL MEDICAL PROBLEM - General Chief Complaint: Upper Extremity Injury/Pain Stated Complaint: ARM IS BURNING FROM CHEMO Time Seen by Provider: 12/20/20 21:22 Source of Information: Reports: Patient History Limitations: Reports: No Limitations - History of Present Illness INITIAL COMMENTS - FREE TEXT/NARRATIVE: Patient is a 35-year-old female with a history of melanoma currently on chemo Opdivo presents today for arm pain. Patient she received chemo earlier today and the lesions on her arm have become red and painful to touch. Patient states there always painful but the pain is increased today. Patient also has some redness to her face as well to has some weeping. Patient otherwise denies any fever chills nausea vomiting. Patient never had this reaction before from previous chemo. Left Upper Arm Pain Score (Numeric/FACES): 10 - Related Data Allergies Allergy/AdvReac Type Severity Reaction Status Date / Time aluminum hydroxide Allergy Hives Verified 12/20/20 21:18 ciprofloxacin [From Cipro] Allergy Swelling Verified 12/20/20 21:18 ciprofloxacin HCl Allergy Swelling Verified 12/20/20 21:18 [From Cipro] latex Allergy Hives Verified 12/20/20 21:18 sulfamethoxazole Allergy Hives Verified 12/20/20 21:18 [From Bactrim] trimethoprim [From Bactrim] Allergy Hives Verified 12/20/20 21:18 Home Meds: Home Meds Amitriptyline [Elavil] 50 mg PO DAILY 08/19/20 [History] Amphetamine/Dextroamphetamine [Adderall] 20 mg PO TID 08/19/20 [History] DULoxetine HCl [Duloxetine HCl] 60 mg PO BEDTIME 08/19/20 [History] Escitalopram [Lexapro] 20 mg PO DAILY 08/19/20 [History] Naltrexone 4.5 mg PO BEDTIME 08/19/20 [History] Ondansetron [Zofran] 4 mg PO ASDIRECTED PRN 08/19/20 [History] lisinopriL [Lisinopril] 20 mg PO DAILY 08/19/20 [History] Cetirizine [ZyrTEC] 10 mg PO DAILY 10/06/20 [History] Cholecalciferol (Vitamin D3) [Vitamin D3] 5,000 units PO DAILY 10/06/20 [History] Diclofenac Sodium 1 tab PO DAILY 10/06/20 [History] Lactobacillus Combination No.4 [Probiotic] 1 tab PO DAILY 10/06/20 [History] Levothyroxine 150 mcg PO ACBREAKFAST 10/06/20 [History] Loratadine/Pseudoephedrine [Loratadine-D 24Hr Tablet] 1 tab PO DAILY 10/06/20 [History] Multivitamin 1 tab PO DAILY 10/06/20 [History] predniSONE [Prednisone] 60 mg PO DAILY 12/20/20 [History] traMADol [Ultram] 25 mg PO DAILY 12/20/20 [History] Past Medical History HEENT History: Reports: None Other HEENT History: wears eyeglasses Cardiovascular History: Reports: None Respiratory History: Reports: Other (See Below) Other Respiratory History: seasonal allergy asthma Gastrointestinal History: Reports: GERD Other Gastrointestinal History: gluten allergy Genitourinary History: Reports: UTI, Recurrent, Other (See Below) 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: Musculoskeletal History: Reports: Other (See Below) Other Musculoskeletal History: disc problem, minor pain only since surgery Neurological History: Reports: Migraines Psychiatric History: Reports: Depression Endocrine/Metabolic History: Reports: Hyperthyroidism, Obesity/BMI 30+, Other (See Below) Hematologic History: Reports: None Immunologic History: Reports: None Oncologic (Cancer) History: Reports: None Dermatologic History: Reports: Melanoma - Infectious Disease History Infectious Disease History: Reports: Chicken Pox, Other (See Below) - Past Surgical History Head Surgeries/Procedures: Reports: None GI Surgical History: Reports: Appendectomy, Cholecystectomy Neurological Surgical History: Reports: Spinal Fusion Other Neurological Surgeries/Procedures: L4-L5 fusion Musculoskeletal Surgical History: Reports: Other (See Below) Other Musculoskeletal Surgeries/Procedures:: L4-L5 fusion - History Comment History Comment: etoh "1x a month" Social & Family History - Family History Family Medical History: No Pertinent Family History Cardiac: Reports: None Respiratory: Reports: None GI: Reports: None Endocrine/Metabolic: Reports: None Hematologic: Reports: None Immunologic: Reports: None Dermatologic: Reports: None - Tobacco Use Tobacco Use Status *Q: Never Tobacco User Second Hand Smoke Exposure: No - Caffeine Use Caffeine Use: Reports: None Other Caffeine Use: Dr. Corral - Recreational Drug Use Recreational Drug Use: No Review of Systems - Review of Systems Review Of Systems: See Below Constitutional: Reports: No Symptoms Eyes: Reports: No Symptoms Ears: Reports: No Symptoms Nose: Reports: No Symptoms Mouth/Throat: Reports: No Symptoms Respiratory: Reports: No Symptoms Cardiovascular: Reports: No Symptoms GI/Abdominal: Reports: No Symptoms Genitourinary: Reports: No Symptoms Musculoskeletal: Reports: No Symptoms Skin: Reports: Rash Neurological: Reports: No Symptoms Psychiatric: Reports: No Symptoms ED EXAM, GENERAL - Physical Exam Exam: See Below Exam Limited By: No Limitations General Appearance: Alert, WD/WN, No Apparent Distress Head: Atraumatic, Normocephalic Neck: Normal Inspection Respiratory/Chest: No Respiratory Distress, Lungs Clear, Normal Breath Sounds Cardiovascular: Normal Peripheral Pulses, Regular Rate, Rhythm Extremities: Other (large melanoma lesion with some redness as well as to face ) Course - Vital Signs Last Recorded V/S: Last Vital Signs Temp 98.8 F 12/20/20 21:20 Pulse 76 12/20/20 23:00 Resp 18 12/20/20 23:00 BP 132/67 12/20/20 23:00 Pulse Ox 97 12/20/20 23:00 - Orders/Labs/Meds Orders: Active Orders 24 hr Category Date Time Status CULTURE BLOOD [BC] Stat Lab 12/20/20 21:45 Received CULTURE BLOOD [BC] Stat Lab 12/20/20 22:12 Received REFLEX LACTIC ACID YES OR NO [CHEM] Routine Lab 12/20/20 22:18 Received Sodium Chloride 0.9% [Normal Saline] 1,000 ml Med 12/20/20 22:32 Active IV .Bolus Blood Culture x2 Reflex Set [OM.PC] Stat Oth 12/20/20 21:36 Ordered Medication Orders Sodium Chloride (Normal Saline) 1,000 mls @ 1,000 mls/hr IV .Bolus ONE Stop: 12/20/20 23:31 Last Admin: 12/20/20 22:44 Dose: 1,000 mls/hr Documented by: MARGARITA Labs: Laboratory Tests 12/20/20 12/20/20 12/20/20 Range/Units 21:25 21:25 21:45 WBC 12.49 H (4.0-11.0) K/uL RBC 4.01 L (4.30-5.90) M/uL Hgb 12.7 (12.0-16.0) g/dL Hct 37.4 (36.0-46.0) % MCV 93.3 (80.0-98.0) fL MCH 31.7 (27.0-32.0) pg MCHC 34.0 (31.0-37.0) g/dL RDW Std Deviation 41.7 (28.0-62.0) fl RDW Coeff of Smiley 12 (11.0-15.0) % Plt Count 510 H (150-400) K/uL MPV 9.30 (7.40-12.00) fL Neut % (Auto) 63.4 (48.0-80.0) % Lymph % (Auto) 23.7 (16.0-40.0) % [place] % (Auto) 12.7 (0.0-15.0) % Eos % (Auto) 0.0 (0.0-7.0) % Baso % (Auto) 0.2 (0.0-1.5) % Neut # (Auto) 7.9 H (1.4-5.7) K/uL Lymph # (Auto) 3.0 H (0.6-2.4) K/uL [place] # (Auto) 1.6 H (0.0-0.8) K/uL Eos # (Auto) 0.0 (0.0-0.7) K/uL Baso # (Auto) 0.0 (0.0-0.1) K/uL Nucleated RBC % 0.0 /100WBC Nucleated RBCs # 0 K/uL Sodium 136 (136-145) mmol/L Potassium 3.3 L (3.5-5.1) mmol/L Chloride 100 (98-107) mmol/L Carbon Dioxide 28.1 (21.0-32.0) mmol/L BUN 20 H (7.0-18.0) mg/dL Creatinine 1.1 H (0.6-1.0) mg/dL Est Cr Clr Drug Dosing 76.02 mL/min Estimated GFR (MDRD) 57.2 ml/min Glucose 88 (74-106) mg/dL Lactic Acid 2.5 H* (0.4-2.0) mmol/L Calcium 8.1 L (8.5-10.1) mg/dL Total Bilirubin 0.2 (0.2-1.0) mg/dL AST 24 (15-37) IU/L ALT 51 (14-63) IU/L Alkaline Phosphatase 79 (46-116) U/L Creatine Kinase 83 (26-308) U/L Total Protein 7.5 (6.4-8.2) g/dL Albumin 3.7 (3.4-5.0) g/dL Globulin 3.8 (2.6-4.0) g/dL Albumin/Globulin Ratio 1.0 (0.9-1.6) Meds: Medications Generic Name Dose Route Start Last Admin Trade Name Freq PRN Reason Stop Dose Admin Sodium Chloride 1,000 mls @ 1,000 mls/hr 12/20/20 22:32 12/20/20 22:44 Normal Saline IV 12/20/20 23:31 1,000 mls/hr .Bolus ONE Administration Discontinued Medications Generic Name Dose Route Start Last Admin Trade Name Freq PRN Reason Stop Dose Admin Dexamethasone 10 mg 12/20/20 22:02 12/20/20 22:12 Dexamethasone 10 Mg/Ml Sdv IVPUSH 12/20/20 22:03 10 mg ONETIME ONE Administration Hydromorphone HCl 1 mg 12/20/20 22:02 12/20/20 22:11 Hydromorphone 1 Mg/Ml Syringe IVPUSH 12/20/20 22:03 1 mg ONETIME ONE Administration Morphine Sulfate 4 mg 12/20/20 21:35 12/20/20 21:49 Morphine 4 Mg/Ml Syringe IVPUSH 12/20/20 21:36 4 mg ONETIME ONE Administration - Re-Assessments/Exams Free Text/Narrative Re-Assessment/Exam: 12/20/20 23:14 Patient pain is improved around site. Patient labs reviewed. Patient had slightly elevated lactate was given a liter of fluids. We looked up Opdivo and this could be a immune related adverse reaction but is common to have skin reactions. The rash is not look intense has some slight redness. Patient was given some intravenous steroids which normally is a treatment with topical steroids. We recommend patient call her oncologist tomorrow for this possible adverse reaction. Patient was given strict return cautions. Departure - Departure Time of Disposition: 23:15 Disposition: Home, Self-Care 01 Condition: Good Clinical Impression: Chemotherapy adverse reaction - Discharge Information *PRESCRIPTION DRUG MONITORING PROGRAM REVIEWED*: Not Applicable *COPY OF PRESCRIPTION DRUG MONITORING REPORT IN PATIENT [place]: Not Applicable Instructions: Opportunistic Infections Referrals: Kristen Jason DO [Primary Care Provider] - Forms: ED Department Discharge Additional Instructions: The following information is given to patients seen in the emergency department who are being discharged to home. This information is to outline your options for follow-up care. We provide all patients seen in our emergency department with a follow-up referral. The need for follow-up, as well as the timing and circumstances, are variable depending upon the specifics of your emergency department visit. If you don't have a primary care physician on staff, we will provide you with a referral. We always advise you to contact your personal physician following an emergency department visit to inform them of the circumstance of the visit and for follow-up with them and/or the need for any referrals to a consulting specialist. The emergency department will also refer you to a specialist when appropriate. This referral assures that you have the opportunity for follow-up care with a specialist. All of these measure are taken in an effort to provide you with optimal care, which includes your follow-up. Under all circumstances we always encourage you to contact your private physician who remains a resource for coordinating your care. When calling for follow-up care, please make the office aware that this follow-up is from your recent emergency room visit. If for any reason you are refused follow-up, please contact the [facility] Emergency Department at and asked to speak to the emergency department charge nurse. Please follow up with your primary care physician. If you do not have a primary care physician, see below: [facility] [address] [place] [address] [id number] [facility] [address] [place] [id number] You were seen today after a possible reaction from your chemo therapy medication. You have some redness around your melanoma sites. Also to your face. This may be an immune related adverse event that can be treated with steroids which we gave. We also gave you pain control. We recommend that you immediately follow-up with your oncologist for further care. The rash becomes more red or inflamed or intense pain please return to ED. Sepsis Event Note (ED) - Evaluation Sepsis Screening Result: No Definite Risk - Focused Exam Vital Signs: Vital Signs Temp Pulse Resp BP Pulse Ox 12/20/20 23:00 76 18 132/67 97 12/20/20 21:50 91 18 147/81 H 96 12/20/20 21:20 98.8 F 106 H 24 H 148/109 H 97 - My Orders Last 24 Hours: My Active Orders 12/20/20 21:36 Blood Culture x2 Reflex Set [OM.PC] Stat 12/20/20 21:45 CULTURE BLOOD [BC] Stat 12/20/20 22:12 CULTURE BLOOD [BC] Stat 12/20/20 22:18 REFLEX LACTIC ACID YES OR NO [CHEM] Routine 12/20/20 22:32 Sodium Chloride 0.9% [Normal Saline] 1,000 ml IV .Bolus - Assessment/Plan Last 24 Hours: My Active Orders 12/20/20 21:36 Blood Culture x2 Reflex Set [OM.PC] Stat 12/20/20 21:45 CULTURE BLOOD [BC] Stat 12/20/20 22:12 CULTURE BLOOD [BC] Stat 12/20/20 22:18 REFLEX LACTIC ACID YES OR NO [CHEM] Routine 12/20/20 22:32 Sodium Chloride 0.9% [Normal Saline] 1,000 ml IV .Bolus Plan: Patient is a 35-year-old female history of melanoma presents today for rash to her upper extremity as well as her face. At the checking of the day there are some dermatological complications from Opdivo. Patient not seem to have a Castle-Joshua syndrome or TPN. Will obtain basic labs pain control and reassess.
[2020-12-20] MEDS ORDERED: HYDROmorphone 1 MG/ML Syringe IVPUSH ONE (22:02)
[2020-12-20] MEDS ORDERED: Dexamethasone 10 MG/ML SDV IVPUSH ONE (22:02)
[2020-12-20 22:04] LABS: CARBON DIOXIDE,CO2 28.1 mmol/L (21.0-32.0); POTASSIUM,K 3.3 mmol/L (3.5-5.1)
[2020-12-20] MEDS ORDERED: Sodium Chloride 0.9% 1,000 ML IV ONE (22:32)
[2020-12-20 23:28] VITALS: BP 117/66; PULSE 72
== END 2020-12-20 23:28 | disposition home or self-care (01) ==
LOC: MW.ED 21:15
DX: R21 Rash and other nonspecific skin eruption (principal); T45.1X5A Adverse effect of antineoplastic and immunosuppressive drugs, initial encounter; E03.9 Hypothyroidism, unspecified; E66.9 Obesity, unspecified; Z68.30 Body mass index [BMI] 30.0-30.9, adult; Z79.899 Other long term (current) drug therapy; Z91.040 Latex allergy status; Z88.0 Allergy status to penicillin; Z88.1 Allergy status to other antibiotic agents
CPT/HCPCS: 36415; 80053; 82550; 83605; 85025; 87040; 96374; 96375; 99283; J1100; J1170; J2270; J7030

== ENCOUNTER 2021-04-05 12:28 | Emergency (ER) | payer SELFPAY | END 2021-04-05 14:13 | disposition left against medical advice (07) | LOC: MW.ED 12:28 | DX: L08.9 Local infection of the skin and subcutaneous tissue, unspecified (principal); Z53.21 Procedure and treatment not carried out due to patient leaving prior to being seen by health care provider ==

== ENCOUNTER 2021-04-06 01:05 | Emergency (ER) | payer SELFPAY ==
[2021-04-06] MEDS ORDERED: HYDROmorphone 1 MG/ML Syringe IVPUSH ONE ×2 (01:25→03:21)
--- NOTE | 2021-04-06 01:28 | EDM.PDOC ---
ED HPI GENERAL MEDICAL PROBLEM - General Chief Complaint: Upper Extremity Injury/Pain Stated Complaint: EXTREME PAIN IN LEFT ARM Time Seen by Provider: 04/06/21 01:14 Source of Information: Reports: Patient History Limitations: Reports: No Limitations - History of Present Illness INITIAL COMMENTS - FREE TEXT/NARRATIVE: Patient is a 35-year-old female with history of melanoma to the left upper extremity presents today for increased pain around the area. Says she was here earlier she has some drainage from the area where the major was infected. She went home because it was too busy states that the pain is intensified. She denies any injuries or direct blows to the arm. She denies any systemic symptoms such as fever chills nausea vomiting or any other complaints. She is taking oral chemotherapy medication as prescribed. left arm Pain Score (Numeric/FACES): 10 - Related Data Allergies Allergy/AdvReac Type Severity Reaction Status Date / Time aluminum hydroxide Allergy Hives Verified 04/06/21 01:12 ciprofloxacin [From Cipro] Allergy Swelling Verified 04/06/21 01:12 ciprofloxacin HCl Allergy Swelling Verified 04/06/21 01:12 [From Cipro] latex Allergy Hives Verified 04/06/21 01:12 sulfamethoxazole Allergy Hives Verified 04/06/21 01:12 [From Bactrim] trimethoprim [From Bactrim] Allergy Hives Verified 04/06/21 01:12 Home Meds: Home Meds Amitriptyline [Elavil] 50 mg PO DAILY 08/19/20 [History] Amphetamine/Dextroamphetamine [Adderall] 20 mg PO TID 08/19/20 [History] DULoxetine HCl [Duloxetine HCl] 60 mg PO BEDTIME 08/19/20 [History] Escitalopram [Lexapro] 20 mg PO DAILY 08/19/20 [History] Naltrexone 4.5 mg PO BEDTIME 08/19/20 [History] Ondansetron [Zofran] 4 mg PO ASDIRECTED PRN 08/19/20 [History] lisinopriL [Lisinopril] 20 mg PO DAILY 08/19/20 [History] Cetirizine [ZyrTEC] 10 mg PO DAILY 10/06/20 [History] Cholecalciferol (Vitamin D3) [Vitamin D3] 5,000 units PO DAILY 10/06/20 [History] Diclofenac Sodium 1 tab PO DAILY 10/06/20 [History] Lactobacillus Combination No.4 [Probiotic] 1 tab PO DAILY 10/06/20 [History] Levothyroxine 150 mcg PO ACBREAKFAST 10/06/20 [History] Loratadine/Pseudoephedrine [Loratadine-D 24Hr Tablet] 1 tab PO DAILY 10/06/20 [History] Multivitamin 1 tab PO DAILY 10/06/20 [History] predniSONE [Prednisone] 60 mg PO DAILY 12/20/20 [History] traMADol [Ultram] 25 mg PO DAILY 12/20/20 [History] Past Medical History HEENT History: Reports: None Other HEENT History: wears eyeglasses Cardiovascular History: Reports: None Respiratory History: Reports: Other (See Below) Other Respiratory History: seasonal allergy asthma Gastrointestinal History: Reports: GERD Other Gastrointestinal History: gluten allergy Genitourinary History: Reports: UTI, Recurrent, Other (See Below) 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: Musculoskeletal History: Reports: Other (See Below) Other Musculoskeletal History: disc problem, minor pain only since surgery Neurological History: Reports: Migraines Psychiatric History: Reports: Depression Endocrine/Metabolic History: Reports: Hyperthyroidism, Obesity/BMI 30+, Other (See Below) Hematologic History: Reports: None Immunologic History: Reports: None Oncologic (Cancer) History: Reports: None Dermatologic History: Reports: Melanoma - Infectious Disease History Infectious Disease History: Reports: Chicken Pox, Other (See Below) - Past Surgical History Head Surgeries/Procedures: Reports: None GI Surgical History: Reports: Appendectomy, Cholecystectomy Neurological Surgical History: Reports: Spinal Fusion Other Neurological Surgeries/Procedures: L4-L5 fusion Musculoskeletal Surgical History: Reports: Other (See Below) Other Musculoskeletal Surgeries/Procedures:: L4-L5 fusion - History Comment History Comment: etoh "1x a month" Social & Family History - Family History Family Medical History: No Pertinent Family History Cardiac: Reports: None Respiratory: Reports: None GI: Reports: None Endocrine/Metabolic: Reports: None Hematologic: Reports: None Immunologic: Reports: None Dermatologic: Reports: None - Caffeine Use Caffeine Use: Reports: None Other Caffeine Use: Dr. Corral Review of Systems - Review of Systems Review Of Systems: See Below Constitutional: Reports: No Symptoms Eyes: Reports: No Symptoms Ears: Reports: No Symptoms Nose: Reports: No Symptoms Mouth/Throat: Reports: No Symptoms Respiratory: Reports: No Symptoms Cardiovascular: Reports: No Symptoms GI/Abdominal: Reports: No Symptoms Genitourinary: Reports: No Symptoms Musculoskeletal: Reports: Arm Pain Skin: Reports: No Symptoms Neurological: Reports: No Symptoms Psychiatric: Reports: No Symptoms ED EXAM, GENERAL - Physical Exam Exam: See Below Exam Limited By: No Limitations General Appearance: Alert, WD/WN Eye Exam: Bilateral Eye: EOMI, PERRL Respiratory/Chest: No Respiratory Distress, Lungs Clear, Normal Breath Sounds Cardiovascular: Normal Peripheral Pulses, Regular Rate, Rhythm GI/Abdominal: Normal Bowel Sounds, Soft, Non-Tender Extremities: No: Normal Inspection (Large ulcer-like lesion to the medial side of the left upper extremity) Neurological: Alert, Oriented Course - Vital Signs Last Recorded V/S: Last Vital Signs Temp 96.8 F L 04/06/21 01:13 Pulse 112 H 04/06/21 01:13 Resp 18 04/06/21 01:13 BP 149/98 H 04/06/21 01:13 Pulse Ox 97 04/06/21 01:13 - Orders/Labs/Meds Orders: Active Orders 24 hr Category Date Time Status CULTURE BLOOD [BC] Stat Lab 04/06/21 01:40 Received CULTURE BLOOD [BC] Stat Lab 04/06/21 02:20 Received Blood Culture x2 Reflex Set [OM.PC] Stat Oth 04/06/21 01:25 Ordered Labs: Laboratory Tests 04/06/21 04/06/21 04/06/21 Range/Units 01:40 01:40 01:40 WBC 8.38 (4.0-11.0) K/uL RBC 4.13 L (4.30-5.90) M/uL Hgb 12.8 (12.0-16.0) g/dL Hct 37.2 (36.0-46.0) % MCV 90.1 (80.0-98.0) fL MCH 31.0 (27.0-32.0) pg MCHC 34.4 (31.0-37.0) g/dL RDW Std Deviation 46.3 (28.0-62.0) fl RDW Coeff of Smiley 14 (11.0-15.0) % Plt Count 329 (150-400) K/uL MPV 9.50 (7.40-12.00) fL Neut % (Auto) 32.0 L (48.0-80.0) % Lymph % (Auto) 30.7 (16.0-40.0) % Lamb % (Auto) 7.5 (0.0-15.0) % Eos % (Auto) 29.7 H (0.0-7.0) % Baso % (Auto) 0.1 (0.0-1.5) % Neut # (Auto) 2.7 (1.4-5.7) K/uL Lymph # (Auto) 2.6 H (0.6-2.4) K/uL Lamb # (Auto) 0.6 (0.0-0.8) K/uL Eos # (Auto) 2.5 H (0.0-0.7) K/uL Baso # (Auto) 0.0 (0.0-0.1) K/uL Nucleated RBC % 0.0 /100WBC Nucleated RBCs # 0 K/uL Sodium 140 (136-145) mmol/L Potassium 4.5 (3.5-5.1) mmol/L Chloride 104 (98-107) mmol/L Carbon Dioxide 31.0 (21.0-32.0) mmol/L BUN 13 (7.0-18.0) mg/dL Creatinine 0.9 (0.6-1.0) mg/dL Est Cr Clr Drug Dosing 92.91 mL/min Estimated GFR (MDRD) > 60.0 ml/min Glucose 108 H (74-106) mg/dL Lactic Acid 1.6 (0.4-2.0) mmol/L Calcium 8.5 (8.5-10.1) mg/dL Total Bilirubin 0.2 (0.2-1.0) mg/dL AST 51 H (15-37) IU/L ALT 87 H (14-63) IU/L Alkaline Phosphatase 147 H (46-116) U/L Total Protein 6.8 (6.4-8.2) g/dL Albumin 3.3 L (3.4-5.0) g/dL Globulin 3.5 (2.6-4.0) g/dL Albumin/Globulin Ratio 0.9 (0.9-1.6) Meds: Medications Discontinued Medications Generic Name Dose Route Start Last Admin Trade Name Freq PRN Reason Stop Dose Admin Hydromorphone HCl 1 mg 04/06/21 01:25 04/06/21 01:45 Hydromorphone 1 Mg/Ml Syringe IVPUSH 04/06/21 01:26 1 mg ONETIME ONE Administration - Re-Assessments/Exams Free Text/Narrative Re-Assessment/Exam: 04/06/21 02:47 Patient lactate is normal patient does not have a white count. Patient pain also controlled be discharged home antibiotics and follow-up with her primary care physician. Departure - Departure Time of Disposition: 02:47 Disposition: Home, Self-Care 01 Condition: Good Clinical Impression: Cancer related pain - Discharge Information *PRESCRIPTION DRUG MONITORING PROGRAM REVIEWED*: Not Applicable *COPY OF PRESCRIPTION DRUG MONITORING REPORT IN PATIENT [place]: Not Applicable Instructions: Chronic Pain, Adult Referrals: Kristen Jason DO [Primary Care Provider] - Forms: ED Department Discharge Additional Instructions: The following information is given to patients seen in the emergency department who are being discharged to home. This information is to outline your options for follow-up care. We provide all patients seen in our emergency department with a follow-up referral. The need for follow-up, as well as the timing and circumstances, are variable depending upon the specifics of your emergency department visit. If you don't have a primary care physician on staff, we will provide you with a referral. We always advise you to contact your personal physician following an emergency department visit to inform them of the circumstance of the visit and for follow-up with them and/or the need for any referrals to a consulting specialist. The emergency department will also refer you to a specialist when appropriate. This referral assures that you have the opportunity for follow-up care with a specialist. All of these measure are taken in an effort to provide you with optimal care, which includes your follow-up. Under all circumstances we always encourage you to contact your private simon mcbride who remains a resource for coordinating your care. When calling for follow-up care, please make the office aware that this follow-up is from your recent emergency room visit. If for any reason you are refused follow-up, please contact the [facility] Emergency Department at and asked to speak to the emergency department charge nurse. Please follow up with your primary care physician. If you do not have a primary care physician, see below: [facility] [address] [place] [address] My [facility] [address] [place] [address] You were seen today for pain to your melanoma lesion on your arm. There is also some slight drainage there. We provided you pain control and also send you home antibiotics that she should take for the next few days. We recommend you call your primary care physician and follow-up or your oncologist if you have any other concerning signs or symptom please return to the ED immediately. Sepsis Event Note (ED) - Focused Exam Vital Signs: Vital Signs Temp Pulse Resp BP Pulse Ox 04/06/21 01:13 96.8 F L 112 H 18 149/98 H 97 - My Orders Last 24 Hours: My Active Orders 04/06/21 01:25 Blood Culture x2 Reflex Set [OM.PC] Stat 04/06/21 01:40 CULTURE BLOOD [BC] Stat 04/06/21 02:20 CULTURE BLOOD [BC] Stat - Assessment/Plan Last 24 Hours: My Active Orders 04/06/21 01:25 Blood Culture x2 Reflex Set [OM.PC] Stat 04/06/21 01:40 CULTURE BLOOD [BC] Stat 04/06/21 02:20 CULTURE BLOOD [BC] Stat Plan: Patient is a 35-year-old female presents today for left upper extremity pain. Patient has a melanoma lesion there. She takes Dilaudid at home with not been controlled the pain. Will provide pain control will obtain labs and reassess patient.
[2021-04-06 02:15] LABS: BLOOD UREA NITROGEN,BUN 13 mg/dL (7.0-18.0); CHLORIDE,CL 104 mmol/L (98-107); GLUCOSE RANDOM 108 mg/dL (74-106); POTASSIUM,K 4.5 mmol/L (3.5-5.1); SODIUM,NA 140 mmol/L (136-145)
[2021-04-06] MEDS: Clindamycin Phosphate in D5W 300 MG in Premix Bag 1 BAG IV ONE ×4 (02:56→03:03)
[2021-04-06 03:40] VITALS: BP 141/91; PULSE 89
== END 2021-04-06 03:40 | disposition home or self-care (01) ==
LOC: MW.ED 01:05
DX: G89.3 Neoplasm related pain (acute) (chronic) (principal); M79.622 Pain in left upper arm; E05.90 Thyrotoxicosis, unspecified without thyrotoxic crisis or storm; E66.9 Obesity, unspecified; Z68.36 Body mass index [BMI] 36.0-36.9, adult; Z88.8 Allergy status to other drugs, medicaments and biological substances; Z88.1 Allergy status to other antibiotic agents; Z91.040 Latex allergy status; Z88.2 Allergy status to sulfonamides; Z79.899 Other long term (current) drug therapy
CPT/HCPCS: 36415; 80053; 83605; 85025; 87040; 96374; 96375; 96376; 99283; J1170; J3490

== ENCOUNTER 2021-04-12 23:33 | Emergency (ER) | payer SELFPAY ==
[2021-04-12 23:46] VITALS: BP 142/88
[2021-04-13] MEDS ORDERED: methylPREDNISolone Sodium Succinate 125 MG/2 ML SDV IVPUSH ONE (00:31)
[2021-04-13] MEDS ORDERED: diphenhydrAMINE 50 MG/ML SDV IVPUSH ONE (00:31)
[2021-04-13] MEDS ORDERED: Famotidine 20 MG/2 ML SDV IVPUSH ONE (00:33)
--- NOTE | 2021-04-13 00:34 | EDM.PDOC ---
ED HPI GENERAL MEDICAL PROBLEM - General Chief Complaint: Allergic Reaction Stated Complaint: ALLERGIC REACTION Time Seen by Provider: 04/12/21 23:59 Source of Information: Reports: Patient History Limitations: Reports: No Limitations - History of Present Illness INITIAL COMMENTS - FREE TEXT/NARRATIVE: 35-year-old female with history of fibromyalgia, melanoma presents with gene ralized hives and palpitation after taking Mekinist 2mg at 10pm. She has had similar reactions of hives taking this medication. She also felt like her throat was closing and she gave herself 2 EpiPen injections at 10:30 PM under the guidance of EMS. She admits to nausea and vomiting and felt a low-grade fever. She denies shortness of breath. she takes Dilaudid for her fibromyalgia. ROS: A 10-point review of systems, other than pertinent positives and negatives as stated per HPI, is otherwise negative Past medical history: No additional pertinent history Past Surgical history: No additional pertinent history Social history: No additional pertinent history Family history: No additional pertinent history PHYSICAL EXAM General: AOx4, GCS = 15, mild distress HEENT: dry mucous membrane, no hoarse voice, no stridor, phonating full sentences, no drooling. Mallampati score = 2. Neck: supple, no meningismus, no Kernig or Brudzinski Cardiac: S1S2 RRR Respiratory: CTAB, no crackles or rales, no wheezing Abdomen: Soft, nontender, no rebound or guarding, nondistended, no pulsatile mass. Back: nontender Musculoskeletal: NVI distally, no deformity Neuro: No focal deficits Left Upper Arm Pain Score (Numeric/FACES): 6 - Related Data Allergies Allergy/AdvReac Type Severity Reaction Status Date / Time aluminum hydroxide Allergy Hives Verified 04/12/21 23:47 ciprofloxacin [From Cipro] Allergy Swelling Verified 04/12/21 23:47 ciprofloxacin HCl Allergy Swelling Verified 04/12/21 23:47 [From Cipro] latex Allergy Hives Verified 04/12/21 23:47 sulfamethoxazole Allergy Hives Verified 04/12/21 23:47 [From Bactrim] trimethoprim [From Bactrim] Allergy Hives Verified 04/12/21 23:47 Home Meds: Home Meds Amitriptyline [Elavil] 50 mg PO DAILY 08/19/20 [History] Amphetamine/Dextroamphetamine [Adderall] 20 mg PO TID 08/19/20 [History] DULoxetine HCl [Duloxetine HCl] 60 mg PO BEDTIME 08/19/20 [History] Escitalopram [Lexapro] 20 mg PO DAILY 08/19/20 [History] Naltrexone 4.5 mg PO BEDTIME 08/19/20 [History] Ondansetron [Zofran] 4 mg PO ASDIRECTED PRN 08/19/20 [History] lisinopriL [Lisinopril] 20 mg PO DAILY 08/19/20 [History] Cetirizine [ZyrTEC] 10 mg PO DAILY 10/06/20 [History] Cholecalciferol (Vitamin D3) [Vitamin D3] 5,000 units PO DAILY 10/06/20 [History] Diclofenac Sodium 1 tab PO DAILY 10/06/20 [History] Lactobacillus Combination No.4 [Probiotic] 1 tab PO DAILY 10/06/20 [History] Levothyroxine 150 mcg PO ACBREAKFAST 10/06/20 [History] Loratadine/Pseudoephedrine [Loratadine-D 24Hr Tablet] 1 tab PO DAILY 10/06/20 [History] Multivitamin 1 tab PO DAILY 10/06/20 [History] predniSONE [Prednisone] 60 mg PO DAILY 12/20/20 [History] traMADol [Ultram] 25 mg PO DAILY 12/20/20 [History] clindamycin HCL [Clindamycin HCl] 450 mg PO TID 7 Days #21 capsule 04/06/21 [Rx] EPINEPHrine [Epipen 2-Jose F] 0.3 mg IJ ONETIME PRN #1 auto.injct 04/13/21 [Rx] diphenhydrAMINE [Benadryl] 50 mg PO Q6HR PRN #20 cap 04/13/21 [Rx] predniSONE [Prednisone] 50 mg PO DAILY #5 tablet 04/13/21 [Rx] Past Medical History HEENT History: Reports: None Other HEENT History: wears eyeglasses Cardiovascular History: Reports: None Respiratory History: Reports: Other (See Below) Other Respiratory History: seasonal allergy asthma Gastrointestinal History: Reports: GERD Other Gastrointestinal History: gluten allergy Genitourinary History: Reports: UTI, Recurrent 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: Musculoskeletal History: Reports: Other (See Below) Other Musculoskeletal History: disc problem, minor pain only since surgery Neurological History: Reports: Migraines Psychiatric History: Reports: Depression Endocrine/Metabolic History: Reports: Hyperthyroidism, Obesity/BMI 30+, Other (See Below) 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 Hematologic History: Reports: None Immunologic History: Reports: None Oncologic (Cancer) History: Reports: None Dermatologic History: Reports: Melanoma - Infectious Disease History Infectious Disease History: Reports: Chicken Pox, Other (See Below) - Past Surgical History Head Surgeries/Procedures: Reports: None GI Surgical History: Reports: Appendectomy, Cholecystectomy Neurological Surgical History: Reports: Spinal Fusion Other Neurological Surgeries/Procedures: L4-L5 fusion Musculoskeletal Surgical History: Reports: Other (See Below) Other Musculoskeletal Surgeries/Procedures:: L4-L5 fusion - History Comment History Comment: etoh "1x a month" Social & Family History - Family History Family Medical History: No Pertinent Family History Cardiac: Reports: None Respiratory: Reports: None GI: Reports: None Endocrine/Metabolic: Reports: None Hematologic: Reports: None Immunologic: Reports: None Dermatologic: Reports: None - Tobacco Use Tobacco Use Status *Q: Never Tobacco User - Caffeine Use Caffeine Use: Reports: Soda Other Caffeine Use: Dr. Corral - Recreational Drug Use Recreational Drug Use: No ED ROS ALLERGIC REACTION - Review of Systems Review Of Systems: See Below (see dictation) ED EXAM GENERAL NO PERIP PULSE - Physical Exam Exam: See Below (see dictation) Course - Vital Signs Last Recorded V/S: Last Vital Signs Temp 97.2 F 04/12/21 23:41 Pulse 97 04/13/21 01:08 Resp 20 04/13/21 01:08 BP 142/88 H 04/12/21 23:41 Pulse Ox 96 04/13/21 01:08 - Orders/Labs/Meds Orders: Active Orders 24 hr Category Date Time Status Cardiac Monitoring [RC] . DIRECTED Care 04/13/21 00:31 Active Pulse Oximetry [RC] ASDIRECTED Care 04/13/21 00:31 Active Meds: Medications Discontinued Medications Generic Name Dose Route Start Last Admin Trade Name Freq PRN Reason Stop Dose Admin Diphenhydramine HCl 50 mg 04/13/21 00:31 04/13/21 00:58 Diphenhydramine 50 Mg/Ml Sdv IVPUSH 04/13/21 00:32 50 mg ONETIME ONE Administration Famotidine 20 mg 04/13/21 00:33 04/13/21 00:58 Famotidine 20 Mg/2 Ml Sdv IVPUSH 04/13/21 00:34 20 mg ONETIME ONE Administration Methylprednisolone Sodium Succinate 125 mg 04/13/21 00:31 04/13/21 00:59 Methylprednisolone Sodium Succinate 125 Mg/2 Ml Sdv IVPUSH 04/13/21 00:32 125 mg ONETIME ONE Administration - Re-Assessments/Exams Free Text/Narrative Re-Assessment/Exam: 04/13/21 01:41 After prolonged observation in the ER, the patient improved and is currently stable for discharge. I performed a repeat exam and did not appreciate new abnormal findings. Patient exhibits normal vital signs and has a normal gait on road test. I advised the patient to return to the ER for reevaluation if symptoms worsened, including fever, worsening pain, or any other worrisome symptoms. I instructed the patient to follow up with their PCP within 2-3 days. MEDICAL DECISION MAKING: I reviewed the patients past medical records, lab and radiographic findings. I discussed the case with the patient. My differential diagnosis included: Anaphylaxis, allergic reaction. Patient was observed for prolonged period of time after epinephrine injection in the field at 10:30 PM with no recurrence of anaphylaxis. Departure - Departure Time of Disposition: 01:37 Disposition: Home, Self-Care 01 Condition: Good Clinical Impression: Chemotherapy adverse reaction, Allergic reaction caused by a drug - Discharge Information *PRESCRIPTION DRUG MONITORING PROGRAM REVIEWED*: Not Applicable *COPY OF PRESCRIPTION DRUG MONITORING REPORT IN PATIENT [place]: Not Applicable Prescriptions: diphenhydrAMINE [Benadryl] 50 mg PO Q6HR PRN #20 cap PRN Reason: Allergies EPINEPHrine [Epipen 2-Jose F] 0.3 mg IJ ONETIME PRN #1 auto.injct PRN Reason: Allergies predniSONE [Prednisone] 50 mg PO DAILY #5 tablet Instructions: Allergies, Adult, [id number] Referrals: PCP,None [Primary Care Provider] - Forms: ED Department Discharge Additional Instructions: The need for follow-up, as well as the timing and circumstances, are variable depending upon the specifics of your emergency department visit. If you don't have a primary care physician on staff, we will provide you with a referral. We always advise you to contact your personal physician following an emergency department visit to inform them of the circumstance of the visit and for follow-up with them and/or the need for any referrals to a consulting spec ialist. The emergency department will also refer you to a specialist when appropriate. This referral assures that you have the opportunity for follow-up care with a specialist. All of these measure are taken in an effort to provide you with optimal care, which includes your follow-up. Under all circumstances we always encourage you to contact your private physician who remains a resource for coordinating your care. When calling for follow-up care, please make the office aware that this follow-up is from your recent emergency room visit. If for any reason you are refused follow-up, please contact the [facility] Emergency Department at and asked to speak to the emergency department charge nurse. If you do not have a primary care doctor, please follow up with the clinics below within 3-5 days. [facility] [address] [place] [id number] [facility] [address] [place] [id number] Critical Care Note - Critical Care Note Comments: CRITCAL CARE: The high probability of sudden, clinically significant deterioration in the patient's condition required the highest level of my preparedness to intervene urgently. The services I provided to this patient were to treat and/or prevent clinically significant deterioration. Services included the following: chart data review, reviewing nursing notes and/or old charts, documentation time, recruiting consultant collaboration regarding findings and treatment options, medication orders and management, direct patient care, vital sign assessments and ordering, interpret ing and reviewing diagnostic studies/lab tests. Aggregate critical care time includes only time during which I was engaged in work directly related to the patient's care, as described above, whether at the bedside or elsewhere in the Emergency Department. It did not include time spent performing other reported procedures or the services of residents, students, nurses or physician assistants. Frequent interventions and/or frequent repeat evaluations were required as well as counseling and coordination of care regarding prognosis, treatments, and discussions with patient, staff and consultants. Critical Care (excluding other procedures): 126 minutes Sepsis Event Note (ED) - Focused Exam Vital Signs: Vital Signs Temp Pulse Resp BP Pulse Ox 04/13/21 01:08 97 20 96 04/12/21 23:41 97.2 F 92 19 142/88 H 99 - My Orders Last 24 Hours: My Active Orders 04/13/21 00:31 Cardiac Monitoring [RC] . DIRECTED Pulse Oximetry [RC] ASDIRECTED - Assessment/Plan Last 24 Hours: My Active Orders 04/13/21 00:31 Cardiac Monitoring [RC] . DIRECTED Pulse Oximetry [RC] ASDIRECTED
[2021-04-13 02:25] VITALS: PULSE 98
== END 2021-04-13 01:41 | disposition home or self-care (01) ==
LOC: MW.ED 23:33
DX: L50.9 Urticaria, unspecified (principal); R00.2 Palpitations; T45.1X5A Adverse effect of antineoplastic and immunosuppressive drugs, initial encounter; E05.90 Thyrotoxicosis, unspecified without thyrotoxic crisis or storm; E66.9 Obesity, unspecified; Z88.8 Allergy status to other drugs, medicaments and biological substances; Z88.1 Allergy status to other antibiotic agents; Z91.040 Latex allergy status; Z88.2 Allergy status to sulfonamides; Z79.899 Other long term (current) drug therapy
CPT/HCPCS: 96374; 96375; 99283; J1200; J2930; J3490

== ENCOUNTER 2021-08-30 00:05 | Emergency (ER) | payer SELFPAY ==
[2021-08-30] MEDS ORDERED: Sodium Chloride 0.9% 1,000 ML IV ONE ×3 (00:29→01:46)
[2021-08-30] MEDS ORDERED: Sodium Chloride 0.9% 2.5 ML Syringe FLUSH PRN (00:29)
[2021-08-30] MEDS ORDERED: Sodium Chloride 0.9% 10 ML Syringe FLUSH PRN (00:29)
[2021-08-30] MEDS ORDERED: Ondansetron 4 MG/2 ML SDV IVPUSH ONE (00:29)
[2021-08-30 00:50] LABS: CARBON DIOXIDE,CO2 25.8 mmol/L (21.0-32.0); POTASSIUM,K 5.6 mmol/L (3.5-5.1)
[2021-08-30] MEDS ORDERED: Morphine 4 MG/ML VIAL IVPUSH ONE (01:46)
[2021-08-30] MEDS ORDERED: Morphine 4 MG/ML VIAL ONE (02:00)
[2021-08-30] MEDS ORDERED: LORazepam 2 MG/ML SDV IVPUSH ONE (02:29)
[2021-08-30] MEDS ORDERED: fentaNYL 50 MCG/ML SDV IVPUSH ONE (04:03)
[2021-08-30 04:12] VITALS: BP 99/58; PULSE 108
[2021-08-30] MEDS ORDERED: Sodium Chloride 0.9% 1,000 ML IV SCH (04:15)
== END 2021-08-30 04:16 ==
LOC: MW.ED 00:05
DX: N17.9 Acute kidney failure, unspecified (principal); U07.1 COVID-19; K56.609 Unspecified intestinal obstruction, unspecified as to partial versus complete obstruction; K56.7 Ileus, unspecified; E86.0 Dehydration; R11.2 Nausea with vomiting, unspecified; E05.90 Thyrotoxicosis, unspecified without thyrotoxic crisis or storm; E66.9 Obesity, unspecified; K21.9 Gastro-esophageal reflux disease without esophagitis; Z91.040 Latex allergy status; Z88.1 Allergy status to other antibiotic agents; Z88.8 Allergy status to other drugs, medicaments and biological substances; Z88.2 Allergy status to sulfonamides; Z79.899 Other long term (current) drug therapy; Z68.35 Body mass index [BMI] 35.0-35.9, adult
CPT/HCPCS: 36415; 71046; 74176; 80053; 81001; 83690; 85025; 87635; 93005; 96374; 96375; 99285; J2060; J2270; J2405; J3010; J7030; U0002